=== PATIENT | male | born 1995 | race Caucasian/White ===

== ENCOUNTER → 2017-02-25 | Outpatient (CLI) | payer OTHER ==
[~2017-02-25] MED LIST: RISP1TAB68 PO
[2017-02-25 13:11] LABS: BASO % 0.6 %; BASO ABS # 0.04 K/uL (0-0.2); COMPLETE YES; EOS % 3.7 %; HEMATOCRIT 47.1 % (42-52); IG% 0.1 %; LYMPH % 40.7 %; MEAN CELL VOLUME 89.2 fL (80-100); MEAN CORPUSCULAR HEMOGLOBIN 31.4 pg (25-34); MEAN CORPUSCULAR HGB CONC 35.2 g/dl (32-36); MONO % 7.6 %; NEUT % 47.3 %; PLATELET COUNT 212 K/uL (130-400); RED BLOOD COUNT 5.28 M/uL (4.7-6.1); WHITE BLOOD COUNT 7.12 K/uL (4.8-10.8)
[2017-02-25 13:44] LABS: ALT/SGPT 98 U/L (12-78); BLOOD UREA NITROGEN 15 mg/dl (7-18); BUN/CREATININE RATIO 15.1 (10-20); CALCIUM 9.3 mg/dl (8.5-10.1); CARBON DIOXIDE 27 mmol/L (21-32); CHLORIDE 108 mmol/L (98-107); CHOLESTEROL 199 mg/dl (0-200); GLUCOSE 77 mg/dl (70-99); POTASSIUM 3.9 mmol/L (3.5-5.1); SODIUM 142 mmol/L (136-145); TRIGLYCERIDES 91 mg/dl (0-150); VERY LOW DENSITY LIPOPROT CALC 18 mg/dl
[2017-02-25 13:54] LABS: ALB/GLOB RATIO 1.3 (0.9-2); ALKALINE PHOSPHATASE 37 U/L (45-117); AST/SGOT 48 U/L (15-37); CHOLESTEROL/HDL RATIO 3.3; HDL CHOLESTEROL 60 mg/dl; LDL CHOLESTEROL CALCULATED 121 mg/dl
== END | disposition home or self-care (01) ==
LOC: C.LAB1850 11:52
PROVIDERS: ATTEND Psychiatry & Neurology Geriatric Psychiatry
DX: Z79.899 Other long term (current) drug therapy (principal)

== ENCOUNTER 2017-09-11 10:22 | Inpatient (IN) | payer OTHER ==
[~2017-09-11] VITALS: Ht 172.7 cm; Wt 84.5 kg
[2017-09-11] MEDS ORDERED: FLUV100T12 PO (10:39)
[2017-09-11] MEDS ORDERED: MULT-506 PO (10:39)
[2017-09-11] MEDS ORDERED: OMEG10007 PO (10:39)
[2017-09-11] MEDS ORDERED: CHOL1000 PO (10:39)
[2017-09-11] MEDS ORDERED: ARIP1INJ INJ (10:39)
[2017-09-11] MEDS ORDERED: MISCCAP80 PO (10:39)
[2017-09-11 11:36] LABS: URINE APPEARANCE CLEAR (CLEAR); URINE BILIRUBIN NEG (NEG); URINE COLOR DK YELLOW; URINE NITRITE NEG (NEG); URINE PH 6.5 (4.5-7.5); URINE SPECIFIC GRAVITY 1.028 (1.000-1.030); UROBILINOGEN NEG (NEG); ZZUR CULT IF INDIC CLEAN CATCH NO
[2017-09-11 11:38] LABS: MANUAL MICROSCOPIC REQUIRED? NO; REVIEW REQ? NO
[2017-09-11 11:55] LABS: BENZODIAZEPINE, URINE NEG (NEG); COCAINE,URINE NEG (NEG); PHENCYCLIDINE, URINE NEG (NEG)
[2017-09-11 12:27] LABS: BASO % 0.6 %; BASO ABS # 0.04 K/uL (0-0.2); COMPLETE YES; EOS % 1.8 %; HEMATOCRIT 45.2 % (42-52); IG% 0.1 %; LYMPH % 28.6 %; LYMPH ABS # 1.91 K/uL (1.2-3.4); MEAN CELL VOLUME 88.5 fL (80-100); MEAN CORPUSCULAR HEMOGLOBIN 33.1 pg (25-34); MEAN CORPUSCULAR HGB CONC 37.4 g/dl (32-36); MONO % 7.5 %; NEUT % 61.4 %; PLATELET COUNT 220 K/uL (130-400); RED BLOOD COUNT 5.11 M/uL (4.7-6.1); WHITE BLOOD COUNT 6.68 K/uL (4.8-10.8)
[2017-09-11 12:44] LABS: BUN/CREATININE RATIO 11.7 (10-20); CALCIUM 9.2 mg/dl (8.5-10.1); CREATININE 1.03 mg/dl (0.60-1.40); POTASSIUM 3.8 mmol/L (3.5-5.1)
[2017-09-11 12:55] LABS: ALB/GLOB RATIO 1.5 (0.9-2); THYROID STIMULATING HORMONE 1.68 uIu/ml (0.300-4.500)
[2017-09-11 12:58] LABS: ACETAMINOPHEN < 2 ug/ml (10-30)
[2017-09-11] MEDS ORDERED: MAGNESIUM HYDROXIDE SUSP 30 ML UDC PO PRN (15:15)
[2017-09-11] MEDS ORDERED: SODIUM CHLORIDE 0.65% NA SOLN 45 ML (OCEAN) PRN (15:15)
[2017-09-11] MEDS ORDERED: NURSING VERBAL MED ORDER ONE ×2 (15:15→17:45)
[2017-09-11] MEDS ORDERED: ALUMINUM/MAGNESIUM SUSP 30 ML UDC PO PRN (15:15)
[2017-09-11] MEDS ORDERED: ACETAMINOPHEN 325 MG TAB PO PRN (15:15)
[2017-09-11] MEDS ORDERED: BISMUTH SUBSALICYLATE PER ML OMNICELL CHARGE PO PRN (15:15)
[2017-09-11] MEDS ORDERED: hydrOXYzine HCL 25 MG TAB PO PRN (15:15)
[2017-09-11] MEDS ORDERED: HALOPERIDOL 1 MG TAB PO STA (15:17)
[2017-09-11 15:31] VITALS: O2SAT 98
--- NOTE | 2017-09-11 17:01 | EMERGENCY ROOM VISIT NOTE ---
History Report prepared by Selwyn: Cynthia Camejo Under the Supervision of: Dr. Blake Oconnor M.D. First contact with patient: 11:28 Chief Complaint: ANXIETY Stated Complaint: UPSET/WORRIED History of Present Illness The patient is a 21 year old male who presents to the Emergency Room with complaints of worsening anxiety that began on one week ago. The patient was diagnosed with having a mood disorder in 2013 and has had ADHD since 3rd grade. The patient's mother states that while the patient was at school, his friends became worried about the patient's anxiety level. They took him to the hospital and he was admitted for 3 days. The patient states that today he went to see his psychiatrist for a check up, noting he was emotional and not thinking clearly. The patient denies having a headache or fever. He notes some sleep apnea, secondary to his deviated septum. The psychiatrist suggested the patient come to Emergency Department for further evaluation and hospitalization. The patient states that he has not been sleeping lately and He notes that he is going to [place] with his family on , noting his psychiatrists suggests he should be more emotional stable if he plans on going. He states that "I worry too much about the people I care about". The patient has been taking Luvox to treat his OCD since 11th grade. 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 He is currently on Bactrim as well as an antifungal cream for a small skin lesion on his right arm. Source of History: patient Onset: one week Position: other (global) Quality: other (mood disorder) Timing: worsening Modifying Factors (Relieving): other (none) Associated Symptoms: No fevers, No headache Review of Systems See HPI for pertinent positives & negatives. A total of 10 systems reviewed and were otherwise negative. Past Medical & Surgical Medical Problems: (1) Anxiety Family History No pertinent family history. Social History Smoking Status: Former Smoker Alcohol Use: none Drug Use: none Marital Status: single Housing Status: lives with family Occupation Status: student Current/Historical Medications Scheduled Aripiprazole (Abilify Maintena), 400 MG INJ MONTHLY Cholecalciferol (Vitamin D3), 1,000 INTER.UNIT PO DAILY Fish Oil (Dixon-3), 1 CAP PO DAILY Fluvoxamine Maleate (Luvox), 200 MG PO HS Multivitamin (Multivitamin), 1 TAB PO DAILY Probiotic Product (Probiotic), 1 CAP PO DAILY Allergies Coded Allergies: Gluten (Unverified Allergy, Unknown, GI UPSET, 09/11/17) Physical Exam Vital Signs Date Time Temp Pulse Resp B/P (MAP) Pulse Ox O2 Delivery O2 Flow Rate FiO2 09/11/17 15:31 75 18 152/86 98 Room Air 09/11/17 12:55 70 133/73 96 Room Air 09/11/17 10:25 36.8 87 20 164/89 99 Room Air Physical Exam Constitutional: Vital signs reviewed. Eyes: Pupils are equal round reactive to light. Conjunctiva are noninjected. ENT: Pharynx is clear without erythema or exudate. Mucous membranes are moist. Neck supple without meningeal signs. Respiratory: Clear to auscultation bilaterally. Breath sounds are equal bilaterally. Cardiovascular: Regular rate and rhythm. No rubs or gallops. GI: Soft, nondistended and nontender. Bowel sounds are present. Musculoskeletal: No peripheral edema. No lower extremity tenderness. Integumentary: Subcentimeter lesions to right forearm eschar. Neurological: The patient is awake and alert. No focal deficits. Psychiatric: Very anxious, tearful at times, scattered thoughts. Medical Decision & Procedures Laboratory Results 09/11/17 12:12 Red Blood Count 5.11, Mean Corpuscular Volume 88.5, Mean Corpuscular Hemoglobin 33.1, Mean Corpuscular Hemoglobin Concent 37.4, Mean Platelet Volume 11.0, Neutrophils (%) (Auto) 61.4, Lymphocytes (%) (Auto) 28.6, Monocytes (%) (Auto) 7.5, Eosinophils (%) (Auto) 1.8, Basophils (%) (Auto) 0.6, Neutrophils # (Auto) 4.10, Lymphocytes # (Auto) 1.91, Monocytes # (Auto) 0.50, Eosinophils # (Auto) 0.12, Basophils # (Auto) 0.04 09/11/17 12:12 Test 09/11/17 11:15 09/11/17 12:12 Urine Color DK YELLOW Urine Appearance CLEAR (CLEAR) Urine pH 6.5 (4.5-7.5) Urine Specific [place] 1.028 (1.000-1.030) Urine Protein NEG (NEG) Urine Glucose (UA) NEG (NEG) Urine Ketones TRACE (NEG) Urine Occult Blood NEG (NEG) Urine Nitrite NEG (NEG) Urine Bilirubin NEG (NEG) Urine Urobilinogen NEG (NEG) Urine Leukocyte Esterase NEG (NEG) Urine Opiates Screen NEG (NEG) Urine Methadone, Qualitative NEG (NEG) Urine Barbiturates NEG (NEG) Urine Phencyclidine (PCP) Level NEG (NEG) Ur Amphetamine/Methamphetamine NEG (NEG) MDMA (Ecstasy) Screen NEG (NEG) Urine Benzodiazepines Screen NEG (NEG) Urine Cocaine Metabolite NEG (NEG) Urine Marijuana (THC) NEG (NEG) White Blood Count 6.68 K/uL (4.8-10.8) Red Blood Count 5.11 M/uL (4.7-6.1) Hemoglobin 16.9 g/dL (14.0-18.0) Hematocrit 45.2 % (42-52) Mean Corpuscular Volume 88.5 fL (80-100) Mean Corpuscular Hemoglobin 33.1 pg (25-34) Mean Corpuscular Hemoglobin Concent 37.4 g/dl (32-36) Platelet Count 220 K/uL (130-400) Mean Platelet Volume 11.0 fL (7.4-10.4) Neutrophils (%) (Auto) 61.4 % Lymphocytes (%) (Auto) 28.6 % Monocytes (%) (Auto) 7.5 % Eosinophils (%) (Auto) 1.8 % Basophils (%) (Auto) 0.6 % Neutrophils # (Auto) 4.10 K/uL (1.4-6.5) Lymphocytes # (Auto) 1.91 K/uL (1.2-3.4) Monocytes # (Auto) 0.50 K/uL (0.11-0.59) Eosinophils # (Auto) 0.12 K/uL (0-0.5) Basophils # (Auto) 0.04 K/uL (0-0.2) RDW Standard Deviation 38.7 fL (36.4-46.3) RDW Coefficient of Variation 12.1 % (11.5-14.5) Immature Granulocyte % (Auto) 0.1 % Immature Granulocyte # (Auto) 0.01 K/uL (0.00-0.02) Anion Gap 7.0 mmol/L (3-11) Est Creatinine Clear Calc Drug Dose 122.1 ml/min Estimated GFR () 121.5 Estimated GFR (Non- 104.8 BUN/Creatinine Ratio 11.7 (10-20) Calcium Level 9.2 mg/dl (8.5-10.1) Total Bilirubin 0.6 mg/dl (0.2-1) Aspartate Amino Transf (AST/SGOT) 20 U/L (15-37) Alanine Aminotransferase (ALT/SGPT) 26 U/L (12-78) Alkaline Phosphatase 48 U/L (45-117) Total Protein 7.4 gm/dl (6.4-8.2) Albumin 4.4 gm/dl (3.4-5.0) Globulin 3.0 gm/dl (2.5-4.0) Albumin/Globulin Ratio 1.5 (0.9-2) Thyroid Stimulating Hormone (TSH) 1.680 uIu/ml (0.300-4.500) Salicylates Level < 1.7 mg/dl (2.8-20) Acetaminophen Level < 2 ug/ml (10-30) Ethyl Alcohol mg/dL < 3.0 mg/dl (0-3) Laboratory results as reviewed by me. Medications Administered Medications (Trade) Dose Ordered Sig/Alan Route Start Time Stop Time Status Last Admin Dose Admin Haloperidol (Haldol Tab) 2 mg NOW STAT PO 09/11/17 15:17 09/11/17 15:19 DC 09/11/17 15:29 2 MG ED Course 1130: The patient was evaluated in room A8. A complete history and physical exam was performed. 1220: I revaluated the patient, who was resting comfortably. He was feeling a little less anxious. 1517: I spoke with Dr. Bowling of [facility]. We discussed the patient and test results. The patient will be further evaluated by Dr. Bowling. He suggested I order Haloperidol for the patient. Ordered Haloperidol 2mg PO. Medical Decision This is a 21-year-old male who presents for mental health evaluation. I did perform a limited focused review of portions of the patient's old chart on the electronic medical record. The patient has had no recent pertinent visits to this hospital. I did evaluate the patient as noted above. I did obtain history from the patient as well as his mother. I did order and review the patient's blood work as noted in the electronic medical record. The patient was medically cleared. He was evaluated by the mental health geriatric case manager and 3 S. He was accepted for inpatient hospitalization to the behavioral unit. Dr. Bowling of psychiatry requested that I give him 2 mg of Haldol which I did. Medication Reconcilliation Current Medication List: was personally reviewed by me Blood Pressure Screening Patient's blood pressure: Elevated blood pressure Blood pressure disposition: Elevated BP felt to be situational Impression Primary Impression: Mood disorder Additional Impression: Anxiety Scribe Attestation The scribe's documentation has been prepared under my direct and personally reviewed by me in its entirety. I confirm that the note above accurately reflects all work, treatment, procedures, and medical decision making performed by me. Departure Information Dispostion Mental Health Acute Care Referrals Everardo Torres D.O. (PCP) Forms HOME CARE DOCUMENTATION FORM, IMPORTANT VISIT INFORMATION Patient Instructions My [facility] Problem Qualifiers
[2017-09-11 17:28] VITALS: BP 151/97; PULSE 73; TEMP 36.8; Ht 172.7 cm; Wt 84.5 kg
[2017-09-11] MEDS: HALOPERIDOL 5 MG TAB PO PRN (18:46)
[2017-09-11] MEDS: FLUVOXAMINE MALEATE 50 MG TAB PO SCH (22:00)
[2017-09-12] MEDS: HALOPERIDOL 5 MG TAB PO PRN ×3 (02:36→22:49)
[2017-09-12] MEDS: FLUVOXAMINE MALEATE 50 MG TAB PO SCH ×2 (02:37→21:38)
[2017-09-12] MEDS: hydrOXYzine HCL 25 MG TAB PO PRN (02:38)
[2017-09-12 12:06] VITALS: BP 136/89
--- NOTE | 2017-09-12 14:31 | Psychiatric History & Physical ---
History Date of Service Sep 12, 2017. Identifying Data Dustin Starks is a 21-year-old male admitted on Sep 11, 2017 at 17:04 who currently lives in [place] with his parents when not at college at [employer]. Dustin Starks was admitted on a 201 voluntary commitment. Patient is admitted from home. The patient was brought to the ED by his mother, Jenny. Information provided by the patient is considered to be reliable, but limited. Chief Complaint "I wasn't thinking clearly". History of Present Illness Dustin Starks is a 21-year-old male admitted to [address] [place] [address] after a brief hospitalization at [facility] in [place]. Pt was reportedly hospitalized for increased anxiety and mood instability. He reports poor compliance with psychiatric medications. Per mother's request, pt was taken from [facility] due to her feelings that care was inadequate. Due to ongoing anxiety and being unable to think clearly, pt was brought to the ED upon recommendation by Dr. Lovett. Pt was previously diagnosed with OCD, anxiety, and ADHD. Pt states the majority of his anxiety is from feeling a need to protect people. He feels as though "it is my job to save the world" and shared that last evening he came to the realization that "my job is to just focus on myself and school and wrestling". Pt states he cares deeply for his mother and "she tells me I'm special all the time and I want her to know how special she is". He becomes extremely tearful when expressing this. Pt is extreme labile and frequently alternates between energetic excitement and tears. Pt also reports his family has planned a trip to [place] over and he is worried that if he is not well, they will have to change their plans which makes him feel guilty. Pt seems to be preoccupied with the idea that he needs to protect people and that it is up to him to "save the world". He can quickly redirect himself and explains that he realizes it is not his job to do that. He states that he has been afraid to share certain thoughts and tells us that "one time I felt like I saved the world with Jeb Seals - in my mind". Due to tangential thought process we were unable to more deeply examine these thoughts. Pt seems to be more energetic and excited when talking about wrestling and seems very passionate about his teammates and the sport itself. He is interested in sharing stories and will frequently apologize if he feels like he has misspoken. Pt is currently on Abilify Maintena and has been on Luvox for several years. Although he has a diagnosis of ADHD, he has not taken medications in several years. Per nursing notes, he has tried Seroquel in the past which caused sedation. He had been involved with a partial program through [facility] for 3 months and they were noticing improvement, but the program lost funding. Pt was then attending [employer] in [place]. Per nursing notes, his mother has passed on that he has OCD and anxious traits that were a big concern in 11th grade as the patient was overly religiously obsessed. He had been taking things in the Bible literally which was affecting grades and behavior. Pt denies that this is a concern at this point in time, though collateral information suggests that he has been veering down this path again recently. Pt denies SI stating "that's so sad, I couldn't do that". He denies HI, A/V hallucinations, paranoia, eating disorder, and PTSD. Will likely require collateral information from family and outpatient providers to fill in remainder of psychiatric history. Past Psychiatric History Current OP Treatment: psychiatrist (Dr. Spaulding - [facility]), therapist (Dr. Lamar ) Prior Psych Hospitalizations: other ([facility]) Access to a Gun: No Suicide Attempts: No Past Medication Trials Per nursing notes: Seroquel - sedation Allergies Allergies: Coded Allergies: Cat Dander (Unverified Allergy, Unknown, respiratory s/s, 09/12/17) Gluten (Unverified Allergy, Unknown, his throat cloggs up some, 09/12/17) Home Medications Scheduled Aripiprazole (Abilify Maintena), 400 MG INJ MONTHLY Cholecalciferol (Vitamin D3), 1,000 INTER.UNIT PO DAILY Fish Oil ([place]-3), 1 CAP PO DAILY Fluvoxamine Maleate (Luvox), 200 MG PO HS Multivitamin (Multivitamin), 1 TAB PO DAILY Probiotic Product (Probiotic), 1 CAP PO DAILY Family History unable to obtain family history at time of admission. Reported family history of anxiety per ED CM mental health evaluation. Alcohol Use Alcohol Use In Past 12 Months: Yes (Occasional) AUDIT Total Score: 1 Smoking Use Smoking Status: Former Smoker Personal History Education: started college (1st semester at [employer]) Relationship History: never Psychological Trauma History: Denies Hx Traumatic Event Additional Comments: Collateral information provided by mother: attempted to speak with mother over the phone to obtain additional information, but did not receive an answer. Review of Systems Constitutional: denies Cardiovascular: denies Respiratory: denies Gastrointestinal: denies Musculoskeletal: denies Neurologic: denies Psychiatric: denies other than stated above The remainder of a 10-point review of systems was reported negative. Examination Physical Examination A physical exam was performed in the ER prior to admission to the unit by Dr. Blake Oconnor M.D. I accept that physical as correct/medical clearance for the inpatient physical exam. Vital Signs Vital Signs Past 12 Hours Date Time Temp Pulse Resp B/P (MAP) Pulse Ox O2 Delivery O2 Flow Rate FiO2 09/12/17 12:06 136/89 09/12/17 07:07 Mental Examination During interview pt is: alert and oriented, cooperative Appearance: appropriately dressed (wearing pj pants and t-shirt), appropriately groomed Eye contact is: good Motor behavior is: no abnormal motor movements Speech: normal in rate, rhythm & volume Affect: labile (periods of excitement to extremely tearful), anxious Mood is: anxious Thought process: tangential, flight of ideas (frequently changing subjects and offering stories), concrete Thought content: preoccupation (wrestling and mother) Suicidal thought are: denied Homicidal thoughts are: denied Hallucinations: denies auditory, denies visual Cognition: memory grossly intact, attention grossly intact, language grossly intact Intelligence estimated to be: average Insight: impaired Judgement: impaired Impression / Recommendations Impression Difficult at this time to assess etiology and severity of symptoms. Stories patient reports seem minimized compared to reports prior to admission at [facility]. Possible bipolar disorder with mixed adelfo vs. schizoaffective disorder. Pt's mother was called, but no answer received. Will likely need collateral information to determine appropriate diagnosis. May consider [place] for mood stabilization as patient presents extremely labile. Continues to received Haldol PRN for anxiety. Inventory Assets Strengths: supportive mother, willingness for treatment, christianity affiliation Needs: engage in effective treatment, manage school stressors, increase medication compliance Risk Factors Assessment Male: Yes : Yes /single/: Yes Mental Health Diagnoses: Yes Substance use disorders: No Previous attempt: No Previous psychiatric stay: Yes Protective Factors Assessment Druze beliefs: Yes : No Responsible for young children: No Employed: No Supportive family: Yes Recommendations (1) Mood disorder 09/12 - unclear etiology of symptoms at this point. questioning bipolar disorder with mixed features vs. schizoaffective disorder. will require collateral information and additional communication with patient to assess recent events more fully. - Will continue with Haldol PRN and discuss potential use of mood stabilizers as opposed to the high doses of Luvox he had been non-compliant with prior to admission. May consider [place] due to extreme fluctuation in mood. - Pt denies SI at this time, but extremely mood labile - Every 15 minute checks for safety - Encourage engagement in group therapy and activities while on the unit. - Suggest family meeting if appropriate - Coordination of care with current outpatient providers - Communication with [facility] if necessary regarding completion of the semester (2) Acute anxiety 09/12 - PRN Haldol and Vistaril given for anxiety and agitation (3) OCD (obsessive compulsive disorder) 09/12 - Plan to taper Luvox as patient was non-compliant with medications since . Current dosing written for 50mg qHS, will determine changes as further history can be obtained and progress can be assessed. CPT Code Initial Hospital Care: [id number]
[2017-09-12] MEDS ORDERED: BENZTROPINE MESYLATE 1 MG TAB PO PRN ×2 (15:30→16:00)
[2017-09-13 07:00] VITALS: BP_SYST 111; BP_SYST 139; BP_DIAS 63; BP_DIAS 73; PULSE 103; PULSE 53; TEMP 36.5
[2017-09-13] MEDS: HALOPERIDOL 5 MG TAB PO PRN (09:20)
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
[2017-09-13] MEDS: LITHIUM CARBONATE SR 300 MG TAB (LITHOBID) PO SCH ×2 (12:43→21:31)
[2017-09-13] MEDS: hydrOXYzine HCL 25 MG TAB PO PRN (21:32)
[2017-09-14] MEDS: hydrOXYzine HCL 25 MG TAB PO PRN (00:31)
[2017-09-14 06:53] VITALS: BP_SYST 114; BP_SYST 124; BP_DIAS 72; BP_DIAS 76; PULSE 55; PULSE 94; TEMP 36.5
[2017-09-14] MEDS: LITHIUM CARBONATE SR 300 MG TAB (LITHOBID) PO SCH ×2 (08:26→21:50)
--- NOTE | 2017-09-14 12:36 | Psychiatric Progress Notes ---
Progress Note Date of Service Sep 14, 2017. Interval History Dustin Starks is a 21-year-old male admitted on Sep 11, 2017 at 17:04 who currently lives in [place] with his parents when not at college at [employer]. Dustin Starks was admitted on a 201 voluntary commitment for magical thinking/delusions and restlessness. Chief Complaint "I'm good, really good.". Subjective Patient was seen & assessed interval progress reviewed with Treatment Team. The patient was isolating in his room at the time of the interview. He says that he is doing well and thinks that the meds are helping. He is very tangential, frequently stopping to conversation to tell me another great idea he is having about wrestling, wrestling camps, paying for [employer] bills, [place]. He admits that his thoughts are moving fast. His mood is good and he is elated about his wrestling ideas. He describes his mood as "really happy". he denies having any fearful thoughts, and says that he feels safe here, "I can tell you are all very good people.". he denies SI/HI. Nursing reports that he had 1 prn of haldol yesterday and at times was tearful. He also expressed stress with his father, feeling a lot of pressure and negativity. Review of Systems Constitutional: No fever, No chills, No sweats, No weight loss, No weakness, No fatigue, No problem reported ENT: No hearing loss, No unusual epistaxis, No nasal symptoms, No sore throat, No tinnitus, No dental problems, No trouble swallowing, No problem reported Respiratory: No cough, No sputum, No wheezing, No shortness of breath, No dyspnea on exertion, No dyspnea at rest, No hemoptysis, No problem reported Cardiovascular: No chest pain, No orthopnea, No PND, No edema, No claudication , No palpitations, No problem reported Abdomen: No pain, No nausea, No vomiting, No diarrhea, No constipation, No GI bleeding, No problem reported Musculoskeletal: No joint pain, No muscle pain, No swelling, No calf pain, No problem reported Neurologic: No memory loss, No paralysis, No weakness, No numbness/tingling, No vertigo, No balance problems, No problem reported Psychiatric: + problem reported (racing thoughts) Integumentary: No rash, No itch, No new/changing skin lesions, No color change , No bleeding, No problem reported Sleep Information Total Hours of Sleep: 6.00 Meal Information Percent of Breakfast Consumed: 100 Percent of Lunch Consumed: 0 Percent of Dinner Consumed: 100 Mental Status Exam During interview pt is: alert and oriented, cooperative Appearance: appropriately dressed, appropriately groomed Eye contact is: good Motor behavior is: no abnormal motor movements Speech: other (verbally intrusive) Affect: labile (periods of excitement to extremely tearful) Mood is: other ("Really happy") Thought process: tangential, flight of ideas (frequently changing subjects and offering stories), concrete Thought content: preoccupation (nondenominational) Suicidal thought are: denied Homicidal thoughts are: denied Hallucinations: denies auditory, denies visual Cognition: memory grossly intact, attention grossly intact, language grossly intact Intelligence estimated to be: average Insight: impaired Judgement: impaired Summary of Past History 09/13--phone session with family (mom cell [phone]) and therapist Jojo (cell [phone]). 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 Developmental disabilities are denied. Patient developed intrussive nondenominational preoccupations in 11th grade of severity that he attended [facility] partial program with Dr. Teran. Outpatient therapy at that time was reportedly for OCD but upon talking with therapist, dx was more conceptual to help him deal with his magical thinking that were transient, often grandiose delusions without lopes or other evidence of psychosis though family did note some social withdrawal at onset of symptoms. At onset of symptoms he worried excessively about people getting hurt--for example thought of throwing himself into a [employer] while running so that no one else would get hurt or sit by the window to block a stray bullet. 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 Therapist Jojo saw the patient for 1 session day prior to admission after not having seen him for 2 years as a courtesy to the family. His presentation at that session was expansive mood, lots of talk about Eulogio Givens and whether or not cartoons were real. Family was able to add past trials of Prozac, Risperdal, and Seroquel and also described past brief treatment with a [facility] provider. Confirmed that patient did see Dr. Chu in 2013 for a total of 4 sessions. He was initially diagnosed with OCD and H&P seems to describe increase in goal directed activity with exercise at night with hyperfocus on wrestling. He was started on Prozac and became increasingly rigid, compulsive, odd, argumentative with family in the weeks that he was on it. Impression Remains tangential with flight of ideas. Tolerating initiation of lithium without side effects. He may benefit from a scheduled antipsychoticl to help slow thoughts until lithium therapeutic. Will add haldol 5 mg. BID for now. Is on Abilify Maintenna and documentation is conflictual about dose and timing with the [facility]'s notes indicating a 200 mg. dose due 09/15, and [facility] notes indicating 400 mg. dose due 09/11. Other documentation indicates that he gets the injection at school at [facility]. Will need clarification from mother who will be visiting today. Plan (1) Psychotic disorder 09/13--reviewed with family and patient impression of currently a mixed manic episode and rationale for tapering/holding Luvox at this time. He is already showing some improvement in grandiosity, less hyperreligious, less hypersexual and thoughts are more organized though still tangential in conversation. Risks/ benefits/alternatives reviewed lithium for mood stabilization and presumed bipolar I disorder. Discussion included but was not limited to risks of toxicity in overdose and need for ongoing blood monitoring (levels, kidney function, and thyroid). The patient was made aware to avoid regular use of NSAIDs as can increase levels and that lithium may need to be held during GI or other illnesses that result in dehyrdation. Reviewed that this would be an adjunct to his Abilify Maintenna injection. Will order Lithobid 300 mg am and 600 mg hs with lithium level on day 5. Screening EKG as baseline. 09/14 - Decidedly manic today. Will add haldol 5 mg. BID - [place] level on 09/17 - Clarify with mother who gives the maintenna, when last short and dosage Discharge / Aftercare Planning Primary Care Physician: Name: Dr. Torres Psychiatrist: Name: Dr. Spaulding - [facility] Date of Appointment: Oct 05, 2017 Therapist: Name: Dr. Abel Uribe Date of Appointment: Sep 16, 2017 Visit Code E&M Code: 98386 Inventory Assets Strengths: supportive mother, willingness for treatment, nondenominational affiliation Needs: engage in effective treatment, manage school stressors, increase medication compliance Risk Factors Assessment Male: Yes : Yes /single/: Yes Mental Health Diagnoses: Yes Substance use disorders: No Previous attempt: No Previous psychiatric stay: Yes Protective Factors Assessment Evangelical beliefs: Yes : No Responsible for young children: No Employed: No Supportive family: Yes Data Vital Signs Last 24 Hrs: Date Time Temp Pulse Resp B/P (MAP) Pulse Ox O2 Delivery O2 Flow Rate FiO2 09/14/17 06:53 36.5 55 16 124/72 94 114/76 Meds Administered Last 24 Hrs: Meds Administered (Past 24Hrs) Medications (Trade) Dose Ordered Sig/Alan Route Start Time Stop Time Status Last Admin Dose Admin Benztropine Mesylate (Cogentin Tab) 1 mg BID PRN PO 09/12/17 16:00 10/12/17 15:29 09/12/17 22:51 1 MG [place] Carbonate (Lithobid Tab) 300 mg QAM PO 09/13/17 11:00 10/13/17 10:59 09/14/17 08:26 300 MG [place] Carbonate (Lithobid Tab) 600 mg HS PO 09/13/17 22:00 10/13/17 21:59 09/13/17 21:31 600 MG Lab Results Last 24 Hrs: 09/11/17 12:12 Red Blood Count 5.11, Mean Corpuscular Volume 88.5, Mean Corpuscular Hemoglobin 33.1, Mean Corpuscular Hemoglobin Concent 37.4, Mean Platelet Volume 11.0, Neutrophils (%) (Auto) 61.4, Lymphocytes (%) (Auto) 28.6, Monocytes (%) (Auto) 7.5, Eosinophils (%) (Auto) 1.8, Basophils (%) (Auto) 0.6, Neutrophils # (Auto) 4.10, Lymphocytes # (Auto) 1.91, Monocytes # (Auto) 0.50, Eosinophils # (Auto) 0.12, Basophils # (Auto) 0.04 09/11/17 12:12 Test 09/11/17 11:15 09/11/17 12:12 Urine Color DK YELLOW Urine Appearance CLEAR (CLEAR) Urine pH 6.5 (4.5-7.5) Urine Specific [place] 1.028 (1.000-1.030) Urine Protein NEG (NEG) Urine Glucose (UA) NEG (NEG) Urine Ketones TRACE (NEG) Urine Occult Blood NEG (NEG) Urine Nitrite NEG (NEG) Urine Bilirubin NEG (NEG) Urine Urobilinogen NEG (NEG) Urine Leukocyte Esterase NEG (NEG) Urine Opiates Screen NEG (NEG) Urine Methadone, Qualitative NEG (NEG) Urine Barbiturates NEG (NEG) Urine Phencyclidine (PCP) Level NEG (NEG) Ur Amphetamine/Methamphetamine NEG (NEG) MDMA (Ecstasy) Screen NEG (NEG) Urine Benzodiazepines Screen NEG (NEG) Urine Cocaine Metabolite NEG (NEG) Urine Marijuana (THC) NEG (NEG) White Blood Count 6.68 K/uL (4.8-10.8) Red Blood Count 5.11 M/uL (4.7-6.1) Hemoglobin 16.9 g/dL (14.0-18.0) Hematocrit 45.2 % (42-52) Mean Corpuscular Volume 88.5 fL (80-100) Mean Corpuscular Hemoglobin 33.1 pg (25-34) Mean Corpuscular Hemoglobin Concent 37.4 g/dl (32-36) Platelet Count 220 K/uL (130-400) Mean Platelet Volume 11.0 fL (7.4-10.4) Neutrophils (%) (Auto) 61.4 % Lymphocytes (%) (Auto) 28.6 % Monocytes (%) (Auto) 7.5 % Eosinophils (%) (Auto) 1.8 % Basophils (%) (Auto) 0.6 % Neutrophils # (Auto) 4.10 K/uL (1.4-6.5) Lymphocytes # (Auto) 1.91 K/uL (1.2-3.4) Monocytes # (Auto) 0.50 K/uL (0.11-0.59) Eosinophils # (Auto) 0.12 K/uL (0-0.5) Basophils # (Auto) 0.04 K/uL (0-0.2) RDW Standard Deviation 38.7 fL (36.4-46.3) RDW Coefficient of Variation 12.1 % (11.5-14.5) Immature Granulocyte % (Auto) 0.1 % Immature Granulocyte # (Auto) 0.01 K/uL (0.00-0.02) Anion Gap 7.0 mmol/L (3-11) Est Creatinine Clear Calc Drug Dose 122.1 ml/min Estimated GFR () 121.5 Estimated GFR (Non- 104.8 BUN/Creatinine Ratio 11.7 (10-20) Calcium Level 9.2 mg/dl (8.5-10.1) Total Bilirubin 0.6 mg/dl (0.2-1) Aspartate Amino Transf (AST/SGOT) 20 U/L (15-37) Alanine Aminotransferase (ALT/SGPT) 26 U/L (12-78) Alkaline Phosphatase 48 U/L (45-117) Total Protein 7.4 gm/dl (6.4-8.2) Albumin 4.4 gm/dl (3.4-5.0) Globulin 3.0 gm/dl (2.5-4.0) Albumin/Globulin Ratio 1.5 (0.9-2) Thyroid Stimulating Hormone (TSH) 1.680 uIu/ml (0.300-4.500) Salicylates Level < 1.7 mg/dl (2.8-20) Acetaminophen Level < 2 ug/ml (10-30) Ethyl Alcohol mg/dL < 3.0 mg/dl (0-3)
[2017-09-14] MEDS: HALOPERIDOL 5 MG TAB PO SCH (21:50)
[2017-09-15 07:05] VITALS: BP_SYST 111; BP_SYST 112; BP_DIAS 67; PULSE 54; PULSE 98; TEMP 36.6
[2017-09-15] MEDS: LITHIUM CARBONATE SR 300 MG TAB (LITHOBID) PO SCH ×2 (07:36→21:21)
[2017-09-15] MEDS: HALOPERIDOL 5 MG TAB PO SCH ×2 (07:36→21:21)
--- NOTE | 2017-09-15 10:29 | Psychiatric Progress Notes ---
Progress Note Date of Service Sep 15, 2017. Interval History Dustin Starks is a 21-year-old male admitted on Sep 11, 2017 at 17:04 who currently lives in [place] with his parents when not at college at [employer]. Dustin Starks was admitted on a 201 voluntary commitment for magical thinking/delusions and restlessness. Chief Complaint "I'm thinking of my favorite teacher.". Subjective Patient was seen & assessed interval progress reviewed with Treatment Team. The patient says that his mood is "good" and wants to talk about his favorite teacher from high school. He describes the teacher, mimics his speech patterns. 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 ". He is still excited about wrestling camps with ideas how to make them fun and exciting. We review some of his symptoms from the [employer] records which state that he thought he was supposed to be God. He believes that they made more of that than it was and says that he is not currently having any such thoughts, and denies feeling that he has special mcleod or gifts. His mood remains elevated, finding amena and happiness in everything. His energy is "medium" and reports that his thoughts are slower than yesterday since the addition of haldol. A meeting is scheduled with his parents tomorrow which he says "will be great". We talk about his therapist, Dr. Uribe, who he describes as "one of my best friends". Nursing reports that yesterday he described "having a tornado in my brain" and was observed to have some mild paranoia at the end of the day yesterday. He denies aud/vis hallucinations, denies SI/HI Review of Systems Constitutional: + problem reported (energy "medium") ENT: No hearing loss, No unusual epistaxis, No nasal symptoms, No sore throat, No tinnitus, No dental problems, No trouble swallowing, No problem reported Respiratory: No cough, No sputum, No wheezing, No shortness of breath, No dyspnea on exertion, No dyspnea at rest, No hemoptysis, No problem reported Cardiovascular: No chest pain, No orthopnea, No PND, No edema, No claudication , No palpitations, No problem reported Abdomen: No pain, No nausea, No vomiting, No diarrhea, No constipation, No GI bleeding, No problem reported Musculoskeletal: No joint pain, No muscle pain, No swelling, No calf pain, No problem reported Neurologic: No memory loss, No paralysis, No weakness, No numbness/tingling, No vertigo, No balance problems, No problem reported Psychiatric: No depression symptoms, No anhedonism, No anxiety, No insomnia, No substance abuse, No problem reported Integumentary: No rash, No itch, No new/changing skin lesions, No color change , No bleeding, No problem reported Sleep Information Total Hours of Sleep: 7.00 Meal Information Percent of Breakfast Consumed: 100 Percent of Lunch Consumed: 70 Percent of Dinner Consumed: 100 Mental Status Exam During interview pt is: alert and oriented, cooperative Appearance: appropriately dressed, appropriately groomed Eye contact is: good Motor behavior is: no abnormal motor movements Speech: other Affect: elated Mood is: other Thought process: tangential, flight of ideas, concrete Thought content: preoccupation Suicidal thought are: denied Homicidal thoughts are: denied Hallucinations: denies auditory, denies visual Cognition: memory grossly intact, attention grossly intact, language grossly intact Intelligence estimated to be: average Insight: impaired Judgement: impaired Summary of Past History 09/13--phone session with family (mom cell [phone]) and therapist Jojo (cell [phone]). 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 Developmental disabilities are denied. Patient developed intrussive tenriism preoccupations in 11th grade of severity that he attended [facility] partial program with Dr. Teran. Outpatient therapy at that time was reportedly for OCD but upon talking with therapist, dx was more conceptual to help him deal with his magical thinking that were transient, often grandiose delusions without lopes or other evidence of psychosis though family did note some social withdrawal at onset of symptoms. At onset of symptoms he worried excessively about people getting hurt--for example thought of throwing himself into a iv[employer] while running so that no one else would get hurt or sit by the window to block a stray bullet. 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 Therapist Jojo saw the patient for 1 session day prior to admission after not having seen him for 2 years as a courtesy to the family. His presentation at that session was expansive mood, lots of talk about Eulogio Givens and whether or not cartoons were real. Family was able to add past trials of Prozac, Risperdal, and Seroquel and also described past brief treatment with a [facility] provider. Confirmed that patient did see Dr. Chu in 2013 for a total of 4 sessions. He was initially diagnosed with OCD and H&P seems to describe increase in goal directed activity with exercise at night with hyperfocus on wrestling. He was started on Prozac and became increasingly rigid, compulsive, odd, argumentative with family in the weeks that he was on it. Impression Some slowing to thoughts today, less tangential. Have confirmed with mother than Sustenna injections were as follows: 1. 400 mg. 08/18/17 2. 200 mg. 09/09/17 at [facility] 3. Scheduled for 400 mg. 09/18 at [facility] Have spoken with mother at her request and informed that we recommend holding next injection in view of having gotten 600 mg. over 3 weeks and is on Luvox which can further elevate Abilify levels. Also reviewed current meds and condition. Will continue with current meds and plan, coordinate with OP providers. Parents have rescheduled their trip to [place] for as in order to remain here with son. Meeting scheduled for tomorrow. Plan (1) Psychotic disorder 09/13--reviewed with family and patient impression of currently a mixed manic episode and rationale for tapering/holding Luvox at this time. He is already showing some improvement in grandiosity, less hyperreligious, less hypersexual and thoughts are more organized though still tangential in conversation. Risks/ benefits/alternatives reviewed lithium for mood stabilization and presumed bipolar I disorder. Discussion included but was not limited to risks of toxicity in overdose and need for ongoing blood monitoring (levels, kidney function, and thyroid). The patient was made aware to avoid regular use of NSAIDs as can increase levels and that lithium may need to be held during GI or other illnesses that result in dehyrdation. Reviewed that this would be an adjunct to his Abilify Maintenna injection. Will order Lithobid 300 mg am and 600 mg hs with lithium level on day 5. Screening EKG as baseline. 09/14 - Decidedly manic today. Will add haldol 5 mg. BID - [place] level on 09/17 - Clarify with mother who gives the maintenna, when last short and dosage 09/15 - Phone conversation with mother to keep her informed of treatment plan and condition - Continue current meds - Will push next Abilify injection back to at least 09/30/16 which would be 3 weeks from last injection, but am not sure that we are seeing good stabilization with this, and may consider another agent? Discharge / Aftercare Planning Primary Care Physician: Name: Dr. Torres Psychiatrist: Name: Dr. Jasson Law [facility] Date of Appointment: Oct 05, 2017 Time of Appointment: 8:30 am Therapist: Name: Dr. Abel Uribe Date of Appointment: Sep 19, 2017 Time of Appointment: 12:00 Appointment Notes: Dr. Uribe's cell phone - [phone] Visit Code E&M Code: 37094 Inventory Assets Strengths: supportive mother, willingness for treatment, tenriism affiliation Needs: engage in effective treatment, manage school stressors, increase medication compliance Risk Factors Assessment Male: Yes : Yes /single/: Yes Mental Health Diagnoses: Yes Substance use disorders: No Previous attempt: No Previous psychiatric stay: Yes Protective Factors Assessment Gnosticism beliefs: Yes : No Responsible for young children: No Employed: No Supportive family: Yes Data Vital Signs Last 24 Hrs: Date Time Temp Pulse Resp B/P (MAP) Pulse Ox O2 Delivery O2 Flow Rate FiO2 09/15/17 07:05 36.6 54 16 112/67 98 111/67 Meds Administered Last 24 Hrs: Meds Administered (Past 24Hrs) Medications (Trade) Dose Ordered Sig/Alan Route Start Time Stop Time Status Last Admin Dose Admin [place] Carbonate (Lithobid Tab) 300 mg QAM PO 09/13/17 11:00 10/13/17 10:59 09/15/17 07:36 300 MG [place] Carbonate (Lithobid Tab) 600 mg HS PO 09/13/17 22:00 10/13/17 21:59 09/14/17 21:50 600 MG Haloperidol (Haldol Tab) 5 mg BID PO 09/14/17 22:00 10/14/17 21:59 09/15/17 07:36 5 MG Lab Results Last 24 Hrs: 09/11/17 12:12 Red Blood Count 5.11, Mean Corpuscular Volume 88.5, Mean Corpuscular Hemoglobin 33.1, Mean Corpuscular Hemoglobin Concent 37.4, Mean Platelet Volume 11.0, Neutrophils (%) (Auto) 61.4, Lymphocytes (%) (Auto) 28.6, Monocytes (%) (Auto) 7.5, Eosinophils (%) (Auto) 1.8, Basophils (%) (Auto) 0.6, Neutrophils # (Auto) 4.10, Lymphocytes # (Auto) 1.91, Monocytes # (Auto) 0.50, Eosinophils # (Auto) 0.12, Basophils # (Auto) 0.04 09/11/17 12:12 Test 09/11/17 11:15 09/11/17 12:12 Urine Color DK YELLOW Urine Appearance CLEAR (CLEAR) Urine pH 6.5 (4.5-7.5) Urine Specific [place] 1.028 (1.000-1.030) Urine Protein NEG (NEG) Urine Glucose (UA) NEG (NEG) Urine Ketones TRACE (NEG) Urine Occult Blood NEG (NEG) Urine Nitrite NEG (NEG) Urine Bilirubin NEG (NEG) Urine Urobilinogen NEG (NEG) Urine Leukocyte Esterase NEG (NEG) Urine Opiates Screen NEG (NEG) Urine Methadone, Qualitative NEG (NEG) Urine Barbiturates NEG (NEG) Urine Phencyclidine (PCP) Level NEG (NEG) Ur Amphetamine/Methamphetamine NEG (NEG) MDMA (Ecstasy) Screen NEG (NEG) Urine Benzodiazepines Screen NEG (NEG) Urine Cocaine Metabolite NEG (NEG) Urine Marijuana (THC) NEG (NEG) White Blood Count 6.68 K/uL (4.8-10.8) Red Blood Count 5.11 M/uL (4.7-6.1) Hemoglobin 16.9 g/dL (14.0-18.0) Hematocrit 45.2 % (42-52) Mean Corpuscular Volume 88.5 fL (80-100) Mean Corpuscular Hemoglobin 33.1 pg (25-34) Mean Corpuscular Hemoglobin Concent 37.4 g/dl (32-36) Platelet Count 220 K/uL (130-400) Mean Platelet Volume 11.0 fL (7.4-10.4) Neutrophils (%) (Auto) 61.4 % Lymphocytes (%) (Auto) 28.6 % Monocytes (%) (Auto) 7.5 % Eosinophils (%) (Auto) 1.8 % Basophils (%) (Auto) 0.6 % Neutrophils # (Auto) 4.10 K/uL (1.4-6.5) Lymphocytes # (Auto) 1.91 K/uL (1.2-3.4) Monocytes # (Auto) 0.50 K/uL (0.11-0.59) Eosinophils # (Auto) 0.12 K/uL (0-0.5) Basophils # (Auto) 0.04 K/uL (0-0.2) RDW Standard Deviation 38.7 fL (36.4-46.3) RDW Coefficient of Variation 12.1 % (11.5-14.5) Immature Granulocyte % (Auto) 0.1 % Immature Granulocyte # (Auto) 0.01 K/uL (0.00-0.02) Anion Gap 7.0 mmol/L (3-11) Est Creatinine Clear Calc Drug Dose 122.1 ml/min Estimated GFR () 121.5 Estimated GFR (Non- 104.8 BUN/Creatinine Ratio 11.7 (10-20) Calcium Level 9.2 mg/dl (8.5-10.1) Total Bilirubin 0.6 mg/dl (0.2-1) Aspartate Amino Transf (AST/SGOT) 20 U/L (15-37) Alanine Aminotransferase (ALT/SGPT) 26 U/L (12-78) Alkaline Phosphatase 48 U/L (45-117) Total Protein 7.4 gm/dl (6.4-8.2) Albumin 4.4 gm/dl (3.4-5.0) Globulin 3.0 gm/dl (2.5-4.0) Albumin/Globulin Ratio 1.5 (0.9-2) Thyroid Stimulating Hormone (TSH) 1.680 uIu/ml (0.300-4.500) Salicylates Level < 1.7 mg/dl (2.8-20) Acetaminophen Level < 2 ug/ml (10-30) Ethyl Alcohol mg/dL < 3.0 mg/dl (0-3)
[2017-09-16 06:52] VITALS: BP_SYST 105; BP_SYST 117; BP_DIAS 64; BP_DIAS 70; PULSE 51; PULSE 84; TEMP 36.8
[2017-09-16] MEDS: LITHIUM CARBONATE SR 300 MG TAB (LITHOBID) PO SCH ×2 (07:41→21:37)
[2017-09-16] MEDS: HALOPERIDOL 5 MG TAB PO SCH ×2 (07:42→21:36)
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
[2017-09-17 07:06] VITALS: BP_SYST 105; BP_SYST 141; BP_DIAS 69; BP_DIAS 91; PULSE 56; PULSE 65; TEMP 36.6
[2017-09-17] MEDS: LITHIUM CARBONATE SR 300 MG TAB (LITHOBID) PO SCH (09:20)
[2017-09-17] MEDS: HALOPERIDOL 5 MG TAB PO SCH (09:20)
[2017-09-17] MEDS ORDERED: LTHCR300 PO (10:38)
[2017-09-17] MEDS ORDERED: HLD5 PO (10:38)
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
[2017-09-17 23:34] LABS: SYNTHETIC CANNABINOIDS QL URIN NEGATIVE (Negative)
== END 2017-09-17 11:45 | disposition home or self-care (01) | DRG 885 ==
LOC: C.EDB 10:23 → C.MHU 17:04
PROVIDERS: ADMIT Psychiatry & Neurology Child & Adolescent Psychiatry; ATTEND Psychiatry & Neurology Child & Adolescent Psychiatry
DX: F29 Unspecified psychosis not due to a substance or known physiological condition (principal); F90.9 Attention-deficit hyperactivity disorder, unspecified type; F39 Unspecified mood [affective] disorder; F42.9 Obsessive-compulsive disorder, unspecified; Z87.891 Personal history of nicotine dependence

== ENCOUNTER → 2017-09-18 | Outpatient (CLI) | payer OTHER ==
[~2017-09-18] MED LIST changes: +ARIP1INJ INJ; +CHOL1000 PO; +HLD5 PO; +LTHCR300 PO; +MISCCAP80 PO; +MULT-506 PO; +OMEG10007 PO; -RISP1TAB68 PO
== END | disposition home or self-care (01) ==
LOC: C.LAB1850 10:21
PROVIDERS: ATTEND Registered Nurse Psychiatric/Mental Health
DX: Z51.81 Encounter for therapeutic drug level monitoring (principal); Z79.899 Other long term (current) drug therapy

== ENCOUNTER 2017-10-09 12:42 | Inpatient (IN) | payer OTHER ==
[~2017-10-09] VITALS: Ht 172.7 cm; Wt 86.1 kg
[2017-10-09] MEDS ORDERED: LTHCR300 PO ×2 (13:20)
[2017-10-09] MEDS ORDERED: HALO5TAB PO (13:20)
[2017-10-09 13:46] LABS: HEMATOCRIT 43.3 % (42-52); HEMOGLOBIN 15.6 g/dL (14.0-18.0); MEAN CELL VOLUME 89.1 fL (80-100); MEAN CORPUSCULAR HEMOGLOBIN 32.1 pg (25-34); MEAN PLATELET VOLUME 10.5 fL (7.4-10.4); PLATELET COUNT 237 K/uL (130-400); RED CELL DISTRIBUTION WIDTH CV 12.3 % (11.5-14.5); RED CELL DISTRIBUTION WIDTH SD 39.6 fL (36.4-46.3); WHITE BLOOD COUNT 8.13 K/uL (4.8-10.8)
[2017-10-09 14:08] LABS: CALCIUM 9.2 mg/dl (8.5-10.1); CREATININE 0.95 mg/dl (0.60-1.40); POTASSIUM 3.9 mmol/L (3.5-5.1)
[2017-10-09 14:19] LABS: TOTAL PROTEIN 7.1 gm/dl (6.4-8.2)
[2017-10-09] MEDS ORDERED: LORAZEPAM 2 MG/ML 1 ML VIAL IV STA (15:23)
[2017-10-09] MEDS ORDERED: LORAZEPAM 1 MG TAB ONE (15:29)
[2017-10-09] MEDS ORDERED: LORAZEPAM 1 MG TAB SL STA (15:29)
[2017-10-09 16:59] VITALS: O2SAT 97
--- NOTE | 2017-10-09 17:27 | EMERGENCY ROOM VISIT NOTE ---
History Report prepared by Selwyn: Janette Goodman Under the Supervision of: Dr. Blake Oconnor M.D. First contact with patient: 12:48 Chief Complaint: MENTAL HEALTH EVALUATION Stated Complaint: MENTAL HEALTH EVALUATION History of Present Illness The patient is a 21 year old male who presents to the Emergency Room for a mental health evaluation. The patient states he is feeling more panicked. Per mother, the patient was doing well for a few days after his discharge in August. She reports the patient has slowly been worsening since being discharged on September 17. Per mother, the patient has not been sleeping. She reports the patient has been working out and not taking naps to try to help him sleep at night. The patient was seen by his therapist this morning and was referred to come to the ED for further evaluation. The patient states he is scared he is gonna hurt someone. He states he has thoughts of hurting his 5 year old little brother but notes he has never acted on them. Per mother, the patient has never hurt anyone. The patient states he feels like people are against him. The patient was started lithium and Haldol after his last admission. His medications are administered by his mother. She states he has been taking his medications as prescribed. The patient's mother reports her is "more in touch" and not as delusional as the last time he was here. The patient had a stomach bug five days ago but denies any fever. He denies any pain anywhere. Source of History: patient, parent Onset: since discharge in August Position: other (generalized) Quality: other (anxiety) Modifying Factors (Relieving): other (none) Associated Symptoms: No fevers, No abdominal pain Review of Systems See HPI for pertinent positives & negatives. A total of 10 systems reviewed and were otherwise negative. Past Medical & Surgical Medical Problems: (1) Anxiety (2) OCD (obsessive compulsive disorder) (3) Psychotic disorder Family History Patient reports no known family medical history. Social History Smoking Status: Former Smoker Alcohol Use: none Drug Use: none Marital Status: single Housing Status: lives with family Occupation Status: student Current/Historical Medications Scheduled Aripiprazole (Abilify Maintena), 400 MG INJ MONTHLY Haloperidol (Haldol), 5 MG PO BID [place] Carbonate ([place] Carbonate ER), 600 MG PO HS [place] Carbonate ([place] Carbonate ER), 300 MG PO QAM Allergies Coded Allergies: Cat Dander (Verified Allergy, Intermediate, respiratory s/s, 10/09/17) Physical Exam Vital Signs Date Time Temp Pulse Resp B/P (MAP) Pulse Ox O2 Delivery O2 Flow Rate FiO2 10/09/17 16:59 76 18 113/73 97 10/09/17 12:45 36.8 89 18 154/86 97 Room Air Physical Exam Constitutional: Vital signs reviewed. Eyes: Pupils are equal round reactive to light. Conjunctiva are noninjected. ENT: Pharynx is clear without erythema or exudate. Mucous membranes are moist. Neck supple without meningeal signs. Respiratory: Clear to auscultation bilaterally. Breath sounds are equal bilaterally. Cardiovascular: Regular rate and rhythm. No rubs or gallops. GI: Soft, nondistended and nontender. Bowel sounds are present. Musculoskeletal: No peripheral edema. No lower extremity tenderness. Integumentary: No cyanosis. Neurological: The patient is awake and alert. No focal deficits. Psychiatric: Very anxious, tearful at times, paranoid. Medical Decision & Procedures Laboratory Results 10/09/17 13:29 10/09/17 13:29 Test 10/09/17 12:11 10/09/17 13:11 10/09/17 13:29 Urine Opiates Screen NEG (NEG) Urine Methadone, Qualitative NEG (NEG) Urine Barbiturates NEG (NEG) Urine Phencyclidine (PCP) Level NEG (NEG) Ur Amphetamine/Methamphetamine NEG (NEG) MDMA (Ecstasy) Screen NEG (NEG) Urine Benzodiazepines Screen NEG (NEG) Urine Cocaine Metabolite NEG (NEG) Urine Marijuana (THC) NEG (NEG) Urine Color YELLOW Urine Appearance CLEAR (CLEAR) Urine pH 7.5 (4.5-7.5) Urine Specific [place] 1.014 (1.000-1.030) Urine Protein NEG (NEG) Urine Glucose (UA) NEG (NEG) Urine Ketones NEG (NEG) Urine Occult Blood NEG (NEG) Urine Nitrite NEG (NEG) Urine Bilirubin NEG (NEG) Urine Urobilinogen NEG (NEG) Urine Leukocyte Esterase NEG (NEG) Red Blood Count 4.86 M/uL (4.7-6.1) Mean Corpuscular Volume 89.1 fL (80-100) Mean Corpuscular Hemoglobin 32.1 pg (25-34) Mean Corpuscular Hemoglobin Concent 36.0 g/dl (32-36) RDW Standard Deviation 39.6 fL (36.4-46.3) RDW Coefficient of Variation 12.3 % (11.5-14.5) Mean Platelet Volume 10.5 fL (7.4-10.4) Anion Gap 6.0 mmol/L (3-11) Est Creatinine Clear Calc Drug Dose 133.5 ml/min Estimated GFR () 134.0 Estimated GFR (Non- 115.6 BUN/Creatinine Ratio 11.8 (10-20) Calcium Level 9.2 mg/dl (8.5-10.1) Total Bilirubin 0.8 mg/dl (0.2-1) Direct Bilirubin 0.2 mg/dl (0-0.2) Aspartate Amino Transf (AST/SGOT) 22 U/L (15-37) Alanine Aminotransferase (ALT/SGPT) 42 U/L (12-78) Alkaline Phosphatase 29 U/L (45-117) Total Protein 7.1 gm/dl (6.4-8.2) Albumin 4.0 gm/dl (3.4-5.0) Thyroid Stimulating Hormone (TSH) 2.670 uIu/ml (0.300-4.500) Salicylates Level < 1.7 mg/dl (2.8-20) Acetaminophen Level < 2 ug/ml (10-30) [place] Level 0.7 mMOL/L (0.6-1.2) Ethyl Alcohol mg/dL < 3.0 mg/dl (0-3) Laboratory results as reviewed by me. Medications Administered Medications (Trade) Dose Ordered Sig/Alan Route Start Time Stop Time Status Last Admin Dose Admin Lorazepam (Ativan Tab) 1 mg STK-MED ONCE .ROUTE 10/09/17 15:29 10/09/17 15:30 DC 10/09/17 15:32 1 MG ED Course 1252: The patient was evaluated in room B11B. A complete history and physical exam was performed. 1332: I updated the mental health case filler on the patient's case. 1509: The patient was evaluated by the case filler and they both agree with hospitalization. 1520: The patient's mother states he has been anxious and that he has had Ativan for his anxiety in the past. 1523: Ordered Lorazepam 1 mg IV. 1609: The patient has been accepted to [facility]. Medical Decision This is a 21-year-old male who presents or mental health evaluation. I did perform a limited focused review of portions of the patient's old chart on the electronic medical record. The patient was admitted in August for psychotic disorder. I did evaluate the patient as noted above. The patient is presenting with increased anxiety with thoughts of hurting his brother. He also feels that everyone is against him. I did treat him with Ativan 1 mg sublingually for his anxiety. I did order and personally review the patient's urine analysis as described above. I did order and review the patient's blood work as noted in the electronic medical record. I did medically clear the patient. I did have the mental health case filler evaluate the patient. She did feel that the patient required inpatient psychiatric care which is what the patient wanted. The patient was admitted to 3 [address]. behavioral unit voluntarily. Medication Reconcilliation Current Medication List: was personally reviewed by me Blood Pressure Screening Patient's blood pressure: Elevated blood pressure Blood pressure disposition: Referred to PCP Impression Primary Impression: Thought disorder Additional Impression: Anxiety Scribe Attestation The scribe's documentation has been prepared under my direct and personally reviewed by me in its entirety. I confirm that the note above accurately reflects all work, treatment, procedures, and medical decision making performed by me. Departure Information Dispostion Admitted as an inpatient Referrals Everardo Torres D.O. (PCP) Patient Instructions My [facility] Problem Qualifiers
[2017-10-09] MEDS ORDERED: SODIUM CHLORIDE 0.65% NA SOLN 45 ML (OCEAN) PRN (17:30)
[2017-10-09] MEDS ORDERED: ACETAMINOPHEN 325 MG TAB PO PRN (17:30)
[2017-10-09] MEDS ORDERED: BISMUTH SUBSALICYLATE PER ML OMNICELL CHARGE PO PRN (17:30)
[2017-10-09] MEDS ORDERED: ALUMINUM/MAGNESIUM SUSP 30 ML UDC PO PRN (17:30)
[2017-10-09] MEDS ORDERED: MAGNESIUM HYDROXIDE SUSP 30 ML UDC PO PRN (17:30)
[2017-10-09] MEDS ORDERED: hydrOXYzine HCL 25 MG TAB PO PRN (17:30)
[2017-10-09 18:38] VITALS: BP 113/73; PULSE 76; TEMP 36.8; BMI 28.9
[2017-10-09] MEDS ORDERED: FLUV100T12 PO (20:28)
[2017-10-09] MEDS ORDERED: FLUV25TA2 PO (20:28)
[2017-10-09] MEDS: HALOPERIDOL 5 MG TAB PO SCH (21:29)
[2017-10-09] MEDS ORDERED: LITHIUM CARBONATE SR 300 MG TAB (LITHOBID) PO SCH (22:00)
[2017-10-10 05:52] VITALS: BMI 28.9
[2017-10-10 05:59] VITALS: Ht 172.7 cm; Wt 86.1 kg
[2017-10-10 06:51] VITALS: BP_SYST 134; BP_SYST 142; BP_DIAS 85; BP_DIAS 88; PULSE 77; PULSE 99; TEMP 36.8
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
[2017-10-10] MEDS ORDERED: LITHIUM CARBONATE SR 300 MG TAB (LITHOBID) PO SCH (09:00)
[2017-10-10] MEDS: HALOPERIDOL 5 MG TAB PO SCH ×2 (09:16→21:09)
[2017-10-10] MEDS ORDERED: HALOPERIDOL 5 MG TAB PO PRN (09:30)
[2017-10-10] MEDS ORDERED: BENZTROPINE MESYLATE 1 MG TAB PO PRN (09:30)
[2017-10-10] MEDS ORDERED: LITHIUM CARBONATE SR 300 MG TAB (LITHOBID) PO ONE (09:30)
[2017-10-10] MEDS: LITHIUM CARBONATE SR 300 MG TAB (LITHOBID) PO SCH (21:09)
[2017-10-10] MEDS: hydrOXYzine HCL 25 MG TAB PO PRN (21:58)
[2017-10-11 06:46] VITALS: BP_SYST 109; BP_SYST 97; BP_DIAS 61; BP_DIAS 68; PULSE 48; PULSE 77; TEMP 36.4
[2017-10-11] MEDS: LITHIUM CARBONATE SR 300 MG TAB (LITHOBID) PO SCH ×2 (08:57→21:41)
[2017-10-11] MEDS: HALOPERIDOL 5 MG TAB PO SCH ×2 (08:57→21:40)
--- NOTE | 2017-10-11 15:06 | Psychiatric Progress Notes ---
Progress Note Date of Service Oct 11, 2017. Interval History Dustin Starks is a now 22-year-old male previously admitted on Sep 11-Sep 17, 2017 who continues to live in [place] with his parents. Dustin Starks was readmitted on a 201 voluntary commitment with intrussive thoughts/SI. [place] was increased on admission. Chief Complaint "Do I have to save the world?". Subjective Patient was seen & assessed interval progress reviewed with nursing. Patient wasn't able to tolerate a very long visit with his grandparents last night. He received prn Vistaril. He has seemed flatter than on previous interactions with staff. He cannot explain why he was looking at videos re: [place] shooting other than it showed up on his page. He had been documented as having HI in the ED but he again reiterates that he in no way wants to hurt himself or his brother. Staff note thought blocking. He is tearful this am but denies depression, just feels anxious about "saving the world". Review of Systems Psych: denies symptoms other than stated above Constitutional: denied Cardiovascular: denied GI: denied Neurologic: denied Remainder of 10 body systems also reviewed and denied other than noted above. Sleep Information Total Hours of Sleep: 7.25 Meal Information Percent of Breakfast Consumed: 100 Percent of Lunch Consumed: 50 Percent of Dinner Consumed: 100 Mental Status Exam During interview pt is: alert and oriented Appearance: appropriately groomed Eye contact is: fair Motor behavior is: no abnormal motor movements Speech: normal in rate, rhythm & volume Affect: labile Mood is: anxious Thought process: blocking, tangential Thought content: delusions Suicidal thought are: denied Homicidal thoughts are: denied Hallucinations: denies auditory, denies visual Cognition: language grossly intact, other (attention decreased) Intelligence estimated to be: consistent with level of education Insight: poor Judgement: poor Impression 22 yo male with significant psychotic symptoms despite 2 antipsychotics and therapeutic (though low) lithium level who was readmitted with violent preoccupations of an obsessive nature. Currently denies intent or plan but evidence of ongoing mood lability and thought disorganization. Was more manic in appearance last stay due to SSRI so dx of that time was likely bipolar but given residual symptoms/persistence there is increasing concern re: possible schizoaffective. Plan (1) Psychotic disorder lithium increased on admit as level 0.7 not true trough and active symptoms. consider lamictal as ongoing lability repeat lithium level on 10/14 (2) OCD (obsessive compulsive disorder) appears to be part of his psychotic process, hx of worsening on SSRIs, patient is requesting medication for anxiety--will do trial doses of Buspar 5 mg TID and monitor for activation hasn't tried SNRI but still would risk cycling Discharge / Aftercare Planning Primary Care Physician: Name: Dr. Torres Therapist: Name: Dr. Abel Uribe Date of Appointment: Oct 16, 2017 Antipsychotic Medications patient prescribed Haldol and Abilify. The patient is continuing 2 antipsychotics due to: a history of a minimum of 3 failed trials of monotherapy (LIST): Risperdal, Seroquel, Abilify Visit Code E&M Code: 31791 Protective Factors Assessment Employed: No Data Vital Signs Last 24 Hrs: Date Time Temp Pulse Resp B/P (MAP) Pulse Ox O2 Delivery O2 Flow Rate FiO2 10/11/17 06:46 36.4 48 16 97/61 77 109/68 Meds Administered Last 24 Hrs: Meds Administered (Past 24Hrs) Medications (Trade) Dose Ordered Sig/Alan Route Start Time Stop Time Status Last Admin Dose Admin Lorazepam (Ativan Tab) 1 mg STK-MED ONCE .ROUTE 10/09/17 15:29 10/09/17 15:30 DC 10/09/17 15:32 1 MG Hydroxyzine HCl (Vistaril Tab) 50 mg HSZ PRN PO 10/09/17 17:30 11/08/17 17:29 10/10/17 21:58 50 MG [place] Carbonate (Lithobid Tab) 300 mg QAM PO 10/10/17 09:00 10/10/17 09:24 DC 10/10/17 09:17 300 MG [place] Carbonate (Lithobid Tab) 600 mg HS PO 10/09/17 22:00 10/10/17 09:25 DC 10/09/17 21:29 600 MG Haloperidol (Haldol Tab) 5 mg BID PO 10/09/17 22:00 11/08/17 21:59 10/11/17 08:57 5 MG [place] Carbonate (Lithobid Tab) 300 mg ONE ONCE PO 10/10/17 09:30 10/10/17 09:48 DC 10/10/17 10:31 300 MG [place] Carbonate (Lithobid Tab) 600 mg BID PO 10/10/17 22:00 11/08/17 21:59 10/11/17 08:57 600 MG Haloperidol (Haldol Tab) 5 mg Q6 PRN PO 10/10/17 09:30 11/09/17 09:29 10/10/17 15:04 5 MG Buspirone HCl (Buspar Tab) 5 mg AC PO 10/11/17 12:15 11/10/17 12:14 10/11/17 13:09 5 MG
[2017-10-11] MEDS: hydrOXYzine HCL 25 MG TAB PO PRN (21:41)
[2017-10-12 06:49] VITALS: BP_SYST 108; BP_SYST 118; BP_DIAS 63; BP_DIAS 72; PULSE 48; PULSE 67; TEMP 36.4
[2017-10-12] MEDS: LITHIUM CARBONATE SR 300 MG TAB (LITHOBID) PO SCH ×2 (08:36→20:38)
[2017-10-12] MEDS: HALOPERIDOL 5 MG TAB PO SCH ×2 (08:36→20:37)
--- NOTE | 2017-10-12 13:33 | Psychiatric Progress Notes ---
Progress Note Date of Service Oct 12, 2017. Interval History Dustin Starks is a now 22-year-old male previously admitted on Sep 11-Sep 17, 2017 who continues to live in [place] with his parents. Dustin Starks was readmitted on a 201 voluntary commitment with intrussive thoughts/SI. [place] was increased on admission. Chief Complaint "Pretty good.". Subjective Patient was seen & assessed interval progress reviewed with Treatment Team. Will says that he is doing well today and denies any thoughts to harm his little brother. He admits to having [employer] because he felt that would be more acceptable than hurting his brother, "I would never do anything to hurt him, I love him.". He denies other intrusive thoughts. He admits that he had ideas of reference from the TV prior to admission, but not since, but denies thought insertion or broadcasting. He denies aud/vis hallucinations. He is focused on just having gotten a new roommate, someone he knew growing up and is fearing that he won't "open up because he would be embarrassed, "I really care about people.". He denies racing thoughts saying in fact that sometimes "I just go blank". Nursing reports that he has been anxious, and at times labile in the milieu. He is also described as being loose, disorganized. Today he is complaining of feeling tired, but denies side effects to meds. Review of Systems Constitutional: + fatigue ENT: No hearing loss, No unusual epistaxis, No nasal symptoms, No sore throat, No tinnitus, No dental problems, No trouble swallowing, No problem reported Respiratory: No cough, No sputum, No wheezing, No shortness of breath, No dyspnea on exertion, No dyspnea at rest, No hemoptysis, No problem reported Cardiovascular: No chest pain, No orthopnea, No PND, No edema, No claudication , No palpitations, No problem reported Abdomen: No pain, No nausea, No vomiting, No diarrhea, No constipation, No GI bleeding, No problem reported Musculoskeletal: No joint pain, No muscle pain, No swelling, No calf pain, No problem reported Neurologic: No memory loss, No paralysis, No weakness, No numbness/tingling, No vertigo, No balance problems, No problem reported Psychiatric: + anxiety Integumentary: No rash, No itch, No new/changing skin lesions, No color change , No bleeding, No problem reported Sleep Information Total Hours of Sleep: 10.50 Meal Information Percent of Breakfast Consumed: 100 Percent of Lunch Consumed: 50 Percent of Dinner Consumed: 100 Mental Status Exam During interview pt is: alert and oriented Appearance: appropriately groomed Eye contact is: fair Motor behavior is: no abnormal motor movements Speech: normal in rate, rhythm & volume Affect: labile Mood is: anxious Thought process: blocking, tangential Thought content: delusions Suicidal thought are: denied Homicidal thoughts are: denied Hallucinations: denies auditory, denies visual Cognition: language grossly intact Intelligence estimated to be: consistent with level of education Insight: poor Judgement: poor Impression Denying obsessive thoughts to harm others today. He believes that the haldol has been helpful, but makes him tired and he hopes to accomodate. Does not appear manic, lithium level 0.7. No evidence of lability in the milieu. Agree that schizoaffective disorder may better describe his condition, rather than bipolar. He received Maintenna on 10/05 making a change in antipsychotics difficult but would consider a trial of Invega and on to Sustenna. For now will continue haldol, encourage uses of prns and adjust dosing based on 24 hr use. Plan (1) Psychotic disorder lithium increased on admit as level 0.7 not true trough and active symptoms. consider lamictal as ongoing lability repeat lithium level on 10/14 10/12 - Continue haldol and encourage use of prn's when needed - Consider switch to Invega and Sustenna since Maintenna does not appear to be effective (3 hospitalizations in short order). - Reality orientation (2) OCD (obsessive compulsive disorder) appears to be part of his psychotic process, hx of worsening on SSRIs, patient is requesting medication for anxiety--will do trial doses of Buspar 5 mg TID and monitor for activation hasn't tried SNRI but still would risk cycling Discharge / Aftercare Planning Primary Care Physician: Name: Dr. Torres Date of Appointment: Dec 28, 2017 Time of Appointment: 7:55 AM Psychiatrist: Name: [facility] Ani Ortez Date of Appointment: Nov 02, 2017 Time of Appointment: 10:45 AM Therapist: Name: Dr. Abel Uribe Date of Appointment: Oct 16, 2017 Time of Appointment: 9 a.m. Other: Name of Appointment #1: [facility] through [facility] Phone Number: Appointment #1 Notes: As needed, determined by pt Antipsychotic Medications patient prescribed Haldol and Abilify. The patient is continuing 2 antipsychotics due to: a history of a minimum of 3 failed trials of monotherapy (LIST): Risperdal, Seroquel, Abilify Visit Code E&M Code: 63278 Risk Factors Assessment Male: Yes : Yes /single/: Yes Higher / Fall in social status: No Health problems: No Mental Health Diagnoses: Yes Substance use disorders: No Previous psychiatric stay: Yes Hopelessness: No Smoker: No Protective Factors Assessment Mandaeism beliefs: Yes : No Responsible for young children: No Employed: No Stable relationships: Yes Supportive family: Yes Good rapport with provider: Yes Data Vital Signs Last 24 Hrs: Date Time Temp Pulse Resp B/P (MAP) Pulse Ox O2 Delivery O2 Flow Rate FiO2 10/12/17 06:49 36.4 48 18 108/63 67 118/72 Meds Administered Last 24 Hrs: Meds Administered (Past 24Hrs) Medications (Trade) Dose Ordered Sig/Alan Route Start Time Stop Time Status Last Admin Dose Admin [place] Carbonate (Lithobid Tab) 600 mg BID PO 10/10/17 22:00 11/08/17 21:59 10/12/17 08:36 600 MG Buspirone HCl (Buspar Tab) 5 mg AC PO 10/11/17 12:15 11/10/17 12:14 10/12/17 12:48 5 MG Lab Results Last 24 Hrs: 10/09/17 13:29 10/09/17 13:29 Test 10/09/17 12:11 10/09/17 13:11 10/09/17 13:29 Urine Opiates Screen NEG (NEG) Urine Methadone, Qualitative NEG (NEG) Urine Barbiturates NEG (NEG) Urine Phencyclidine (PCP) Level NEG (NEG) Ur Amphetamine/Methamphetamine NEG (NEG) MDMA (Ecstasy) Screen NEG (NEG) Urine Benzodiazepines Screen NEG (NEG) Urine Cocaine Metabolite NEG (NEG) Urine Marijuana (THC) NEG (NEG) Urine Color YELLOW Urine Appearance CLEAR (CLEAR) Urine pH 7.5 (4.5-7.5) Urine Specific [place] 1.014 (1.000-1.030) Urine Protein NEG (NEG) Urine Glucose (UA) NEG (NEG) Urine Ketones NEG (NEG) Urine Occult Blood NEG (NEG) Urine Nitrite NEG (NEG) Urine Bilirubin NEG (NEG) Urine Urobilinogen NEG (NEG) Urine Leukocyte Esterase NEG (NEG) Red Blood Count 4.86 M/uL (4.7-6.1) Mean Corpuscular Volume 89.1 fL (80-100) Mean Corpuscular Hemoglobin 32.1 pg (25-34) Mean Corpuscular Hemoglobin Concent 36.0 g/dl (32-36) RDW Standard Deviation 39.6 fL (36.4-46.3) RDW Coefficient of Variation 12.3 % (11.5-14.5) Mean Platelet Volume 10.5 fL (7.4-10.4) Anion Gap 6.0 mmol/L (3-11) Est Creatinine Clear Calc Drug Dose 133.5 ml/min Estimated GFR () 134.0 Estimated GFR (Non- 115.6 BUN/Creatinine Ratio 11.8 (10-20) Calcium Level 9.2 mg/dl (8.5-10.1) Total Bilirubin 0.8 mg/dl (0.2-1) Direct Bilirubin 0.2 mg/dl (0-0.2) Aspartate Amino Transf (AST/SGOT) 22 U/L (15-37) Alanine Aminotransferase (ALT/SGPT) 42 U/L (12-78) Alkaline Phosphatase 29 U/L (45-117) Total Protein 7.1 gm/dl (6.4-8.2) Albumin 4.0 gm/dl (3.4-5.0) Thyroid Stimulating Hormone (TSH) 2.670 uIu/ml (0.300-4.500) Salicylates Level < 1.7 mg/dl (2.8-20) Acetaminophen Level < 2 ug/ml (10-30) [place] Level 0.7 mMOL/L (0.6-1.2) Ethyl Alcohol mg/dL < 3.0 mg/dl (0-3)
[2017-10-13 06:53] VITALS: BP_SYST 107; BP_SYST 145; BP_DIAS 71; PULSE 45; PULSE 80; TEMP 36.5
[2017-10-13] MEDS: LITHIUM CARBONATE SR 300 MG TAB (LITHOBID) PO SCH ×2 (08:57→21:02)
[2017-10-13] MEDS: HALOPERIDOL 5 MG TAB PO SCH ×2 (08:57→21:02)
--- NOTE | 2017-10-13 11:38 | Psychiatric Progress Notes ---
Progress Note Date of Service Oct 13, 2017. Interval History Dustin Starks is a now 22-year-old male previously admitted on Sep 11-Sep 17, 2017 who continues to live in [place] with his parents. Dustin Starks was readmitted on a 201 voluntary commitment with intrussive thoughts/SI. [place] was increased on admission. Chief Complaint "Better". Subjective Patient was seen & assessed interval progress reviewed with Nursing. Staff report he is going to some groups but is flat and retreats to his room/bed at times. He had a meeting with his mother this morning, which went well. She was supportive of him staying in treatment, as they feel he left too soon after his last hospitalization as he wanted to be home for [place]. Today the patient was seen with Rafi Sellers, MS3, with his permission. He says he is "better, less crazy thoughts, suicidal thoughts." He describes "scary " thoughts of "me shooting myself in the mouth," but says he "didn't want to do that." Describes intrusive thoughts and has tried to learn to "just accept them and they'll go away, or tell myself I'll worry about it later, and then I just kind of forget to worry about it." Says he has been spending his time going to group and "daily goals, treatment goals, to worry about myself only, just get better." Describes mood as "pretty happy I guess, I really like it here, it's like vacation." Sleep is improving, but notes he had "panic" last night and talked to nursing staff, which helped. He describes acute onset of feeling unable to breathe while he was trying to go to sleep, with intense worry "about helping other people, I feel like I need to be in perfect harmony with everyone. " He was able to fall asleep after talking with staff, and felt rested this morning. He is napping during the day at times. He hopes to get a PT job when he goes home, and already applied at a [employer] shop, [employer], and a [employer] restaurant. He denies HI since admission, and states that although he had intrusive thoughts to harm others prior to admission, he says he "never wanted to do that." He wants to work on a plan of what he could do if these thoughts ever recurred. He says he has "good news, my father's employee said he could talk to me if I ever needed someone to talk to." Talked about his lack of "harmony" with his father, saying his father thought he should get a job right away after his last discharge. Although his father wasn't at the meeting, he did visit, and the patient says it went well. Sleep Information Total Hours of Sleep: 8.00 Meal Information Percent of Breakfast Consumed: 100 Percent of Lunch Consumed: 50 Percent of Dinner Consumed: 90 Mental Status Exam During interview pt is: alert and oriented, cooperative Appearance: appropriately dressed, appropriately groomed, other (athletic appearing) Eye contact is: fair Motor behavior is: steady gait & station, no abnormal motor movements Speech: normal in rate, rhythm & volume Affect: other (mildly expansive) Mood is: other ("better") Thought process: goal directed, circumstantial Thought content: cognitive distortions Suicidal thought are: denied Homicidal thoughts are: denied Hallucinations: denies auditory, denies visual Cognition: language grossly intact Intelligence estimated to be: consistent with level of education Insight: fair Judgement: poor Medication Trials Abilify, Luvox, Prozac, Risperdal, and Seroquel Impression Intrusive thoughts to harm himself and others are decreasing, but he remains distressed by them, with episodic anxiety and feeling easily overwhelmed. The addition of haldol has been helpful, but makes him tired, and lithium was increased on admission with trough level tomorrow. Agree that schizoaffective disorder may better describe his condition, rather than bipolar. He received Maintenna on 10/05 making a change in antipsychotics difficult, but could consider a trial of Invega and on to Sustenna. For now will continue haldol, encourage uses of prns and adjust dosing based on 24 hr use. Plan (1) Psychotic disorder lithium increased on admit as level 0.7 not true trough and active symptoms. consider lamictal as ongoing lability repeat lithium level on 10/14 10/12 - Continue haldol and encourage use of prn's when needed - Consider switch to Invega and Sustenna since Maintena does not appear to be effective (3 hospitalizations in short order). - Reality orientation 1/16 - Confirmed last dose of Abilify Maintena 400 mg IM was given on 10/05/2017. - [place] increased from 300 mg every morning and 600 mg daily at bedtime to 600 mg twice a day on admission; repeat trough level tomorrow. Should consolidate bedtime prior to discharge for improved outpatient compliance and decreased risk of kidney damage. - Continue haloperidol 5 mg twice a day and buspirone 5 mg 3 times a day. - Continue when necessary Haldol, has not required a dose since 10/10/2017. - Coordinate care with outpatient providers, including therapist Barry Uribe and psychiatrist Dr. Lovett at [facility]. - Would recommend a more structured outpatient care, such as psych rehabilitation, PHP, or IOP, given 3 [id number] inpatient hospitalizations with rapid decompensation after discharge. (2) OCD (obsessive compulsive disorder) appears to be part of his psychotic process, hx of worsening on SSRIs, patient is requesting medication for anxiety--will do trial doses of Buspar 5 mg TID and monitor for activation hasn't tried SNRI but still would risk cycling Discharge / Aftercare Planning Primary Care Physician: Name: Dr. Torres Date of Appointment: Dec 28, 2017 Time of Appointment: 7:55 AM Psychiatrist: Name: [facility] - Dr. Ortez Date of Appointment: Nov 02, 2017 Time of Appointment: 10:45 AM Therapist: Name: Dr. Abel Uribe Date of Appointment: Oct 16, 2017 Time of Appointment: 9 a.m. Other: Name of Appointment #1: Sarah - [employer] through [facility] Phone Number: Appointment #1 Notes: As needed, determined by pt Antipsychotic Medications patient prescribed Haldol and Abilify. The patient is continuing 2 antipsychotics due to: a history of a minimum of 3 failed trials of monotherapy (LIST): Risperdal, Seroquel, Abilify Visit Code E&M Code: 33139 Risk Factors Assessment Male: Yes : Yes /single/: Yes Higher / Fall in social status: No Health problems: No Mental Health Diagnoses: Yes Substance use disorders: No Previous psychiatric stay: Yes Hopelessness: No Smoker: No Protective Factors Assessment Orthodoxy beliefs: Yes : No Responsible for young children: No Employed: No Stable relationships: Yes Supportive family: Yes Good rapport with provider: Yes Data Vital Signs Last 24 Hrs: Date Time Temp Pulse Resp B/P (MAP) Pulse Ox O2 Delivery O2 Flow Rate FiO2 10/13/17 06:53 36.5 45 16 107/71 80 145/71 Meds Administered Last 24 Hrs: Meds Administered (Past 24Hrs) Medications (Trade) Dose Ordered Sig/Alan Route Start Time Stop Time Status Last Admin Dose Admin Buspirone HCl (Buspar Tab) 5 mg AC PO 10/11/17 12:15 11/10/17 12:14 10/13/17 08:57 5 MG
[2017-10-14 06:42] VITALS: BP_SYST 117; BP_SYST 150; BP_DIAS 70; BP_DIAS 92; PULSE 52; PULSE 81; TEMP 36.5
[2017-10-14] MEDS: HALOPERIDOL 5 MG TAB PO SCH ×2 (08:22→21:06)
[2017-10-14] MEDS: LITHIUM CARBONATE SR 300 MG TAB (LITHOBID) PO SCH (09:27)
--- NOTE | 2017-10-14 12:17 | Psychiatric Progress Notes ---
Progress Note Date of Service Oct 14, 2017. Interval History Dustin Starks is a now 22-year-old male previously admitted on Sep 11-Sep 17, 2017 who continues to live in [place] with his parents. Dustin Starks was readmitted on a 201 voluntary commitment with intrussive thoughts/SI. [place] was increased on admission. Chief Complaint "Good.". Subjective Patient was seen & assessed interval progress reviewed with Treatment Team. The patient reports that his mood is "great" today. He denies having any more thoughts to harm his younger brother, or anyone else, "I love him. He does goofy things". He denies feeling angry for any reason. He denies any other intrusive thoughts and denies any repetitive or ritualized behaviors. when asked how long he thought he needed to be in the hospital he said "5 days", but when asked what he wanted to accomplish, he was unsure other than to say "a safety plan". He says that his family meeting with parents yesterday went well , and that he plans to apply for a job after discharge. He denies being religiously preoccupied, something that has been present in the past, saying that "its a more casual thing now.". Informed that lithium level is 1.0. He denies N/V/D and no tremors to outstretched hands. Review of Systems Constitutional: No fever, No chills, No sweats, No weight loss, No weakness, No fatigue, No problem reported ENT: No hearing loss, No unusual epistaxis, No nasal symptoms, No sore throat, No tinnitus, No dental problems, No trouble swallowing, No problem reported Respiratory: No cough, No sputum, No wheezing, No shortness of breath, No dyspnea on exertion, No dyspnea at rest, No hemoptysis, No problem reported Cardiovascular: No chest pain, No orthopnea, No PND, No edema, No claudication , No palpitations, No problem reported Abdomen: No pain, No nausea, No vomiting, No diarrhea, No constipation, No GI bleeding, No problem reported Musculoskeletal: No joint pain, No muscle pain, No swelling, No calf pain, No problem reported Neurologic: No memory loss, No paralysis, No weakness, No numbness/tingling, No vertigo, No balance problems, No problem reported Psychiatric: No depression symptoms, No anhedonism, No anxiety, No insomnia, No substance abuse, No problem reported Integumentary: No rash, No itch, No new/changing skin lesions, No color change , No bleeding, No problem reported Sleep Information Total Hours of Sleep: 7.75 Meal Information Percent of Breakfast Consumed: 100 Percent of Lunch Consumed: 100 Percent of Dinner Consumed: 90 Mental Status Exam During interview pt is: alert and oriented, cooperative Appearance: appropriately dressed, appropriately groomed Eye contact is: good Motor behavior is: steady gait & station, no abnormal motor movements Speech: normal in rate, rhythm & volume Affect: blunted Mood is: other ("better") Thought process: goal directed Thought content: reality based without delusions Suicidal thought are: denied Homicidal thoughts are: denied Hallucinations: denies auditory, denies visual Cognition: language grossly intact Intelligence estimated to be: consistent with level of education Insight: fair Judgement: poor Medication Trials Abilify, Luvox, Prozac, Risperdal, and Seroquel Impression Denies intrusive thoughts, rituals or other evidence of psychosis. The quality of the interaction remains odd, superficial, naive. In reviewing the psych testing records from 2013, there were similar reports that he was odd, with various preoccupations/delusions over the years. Dx at that time were psychotic disorder NOS, ADHD combined type by history and rule out bipolar disorder. There is a vacantness to him, an inability to be complex in his thinking that does not match his cognitive abilities to date. Will continue work on safety plan, and if able to sustain his improvements, may be able to discharge in the next few days. Plan (1) Psychotic disorder lithium increased on admit as level 0.7 not true trough and active symptoms. consider lamictal as ongoing lability repeat lithium level on 10/14 10/12 - Continue haldol and encourage use of prn's when needed - Consider switch to Invega and Sustenna since Maintena does not appear to be effective (3 hospitalizations in short order). - Reality orientation 10/13 - Confirmed last dose of Abilify Maintena 400 mg IM was given on 10/05/2017. - [place] increased from 300 mg every morning and 600 mg daily at bedtime to 600 mg twice a day on admission; repeat trough level tomorrow. Should consolidate bedtime prior to discharge for improved outpatient compliance and decreased risk of kidney damage. - Continue haloperidol 5 mg twice a day and buspirone 5 mg 3 times a day. - Continue when necessary Haldol, has not required a dose since 10/10/2017. - Coordinate care with outpatient providers, including therapist Barry Uribe and psychiatrist Dr. Lovett at [facility]. - Would recommend a more structured outpatient care, such as psych rehabilitation, PHP, or IOP, given 3 [id number] inpatient hospitalizations with rapid decompensation after discharge. 10/14 -[place] level 1.0. Continue current meds and will consolidate to q HS (2) OCD (obsessive compulsive disorder) appears to be part of his psychotic process, hx of worsening on SSRIs, patient is requesting medication for anxiety--will do trial doses of Buspar 5 mg TID and monitor for activation hasn't tried SNRI but still would risk cycling 10/14 - Denies obsessions or compulsions today Discharge / Aftercare Planning Primary Care Physician: Name: Dr. Torres Date of Appointment: Dec 28, 2017 Time of Appointment: 7:55 AM Appointment Notes: [address] [facility] [address] Psychiatrist: Name: [facility] - Dr. Ortez Date of Appointment: Nov 02, 2017 Time of Appointment: 10:45 AM Appointment Notes: [address] [facility] [address] Therapist: Name: Dr. Abel Uribe Date of Appointment: Oct 16, 2017 Time of Appointment: 9:00 a.m. Appointment Notes: [address] [address] Other: Name of Appointment #1: Sarah - [employer] through [facility] Phone Number: Appointment #1 Notes: As needed, determined by pt Antipsychotic Medications patient prescribed Haldol and Abilify. The patient is continuing 2 antipsychotics due to: a history of a minimum of 3 failed trials of monotherapy (LIST): Risperdal, Seroquel, Abilify Visit Code E&M Code: 69097 Risk Factors Assessment Male: Yes : Yes /single/: Yes Higher / Fall in social status: No Health problems: No Mental Health Diagnoses: Yes Substance use disorders: No Previous psychiatric stay: Yes Hopelessness: No Smoker: No Protective Factors Assessment Yazidism beliefs: Yes : No Responsible for young children: No Employed: No Stable relationships: Yes Supportive family: Yes Good rapport with provider: Yes Data Vital Signs Last 24 Hrs: Date Time Temp Pulse Resp B/P (MAP) Pulse Ox O2 Delivery O2 Flow Rate FiO2 10/14/17 06:42 36.5 52 16 117/70 81 150/92 Meds Administered Last 24 Hrs: Current Inpatient Medications Medications (Trade) Dose Ordered Sig/Alan Route Start Time Stop Time Status Last Admin Dose Admin Acetaminophen (Tylenol Tab) 650 mg Q4H PRN PO 10/09/17 17:30 11/08/17 17:29 Bismuth Subsalicylate (Kaopectate Liqd) 15 ml PRN PRN PO 10/09/17 17:30 11/08/17 17:29 Al Hydroxide/Mg Hydroxide (Maalox Susp) 30 ml Q4H PRN PO 10/09/17 17:30 11/08/17 17:29 Magnesium Hydroxide (Milk Of Magnesia Susp) 30 ml DAILY PRN PO 10/09/17 17:30 11/08/17 17:29 Sodium Chloride ([place] Nasal [place]) PRN PRN NA 10/09/17 17:30 11/08/17 17:29 Hydroxyzine HCl (Vistaril Tab) 50 mg HSZ PRN PO 10/09/17 17:30 11/08/17 17:29 10/11/17 21:41 50 MG Hydroxyzine HCl (Vistaril Tab) 25 mg Q4H PRN PO 10/09/17 17:30 11/08/17 17:29 10/12/17 20:33 25 MG Miscellaneous Information (Order Awaiting Action) 1 ea QS N/A 10/10/17 00:00 11/09/17 00:00 Haloperidol (Haldol Tab) 5 mg BID PO 10/09/17 22:00 11/08/17 21:59 10/14/17 08:22 5 MG [place] Carbonate (Lithobid Tab) 600 mg BID PO 10/10/17 22:00 11/08/17 21:59 10/14/17 09:27 600 MG Haloperidol (Haldol Tab) 5 mg Q6 PRN PO 10/10/17 09:30 11/09/17 09:29 10/10/17 15:04 5 MG Benztropine Mesylate (Cogentin Tab) 1 mg BID PRN PO 10/10/17 09:30 11/09/17 09:29 Buspirone HCl (Buspar Tab) 5 mg AC PO 10/11/17 12:15 11/10/17 12:14 10/14/17 08:21 5 MG Lab Results Last 24 Hrs: Last 24 Hours Test 10/14/17 08:17 [place] Level 1.0 mMOL/L
[2017-10-14] MEDS ORDERED: LITHIUM CARBONATE SR 300 MG TAB (LITHOBID) PO ONE (21:00)
[2017-10-15 06:25] VITALS: BP_SYST 105; BP_SYST 97; BP_DIAS 59; BP_DIAS 67; PULSE 52; PULSE 54; TEMP 36.9
[2017-10-15] MEDS: HALOPERIDOL 5 MG TAB PO SCH ×2 (09:28→21:12)
--- NOTE | 2017-10-15 13:07 | Psychiatric Progress Notes ---
Progress Note Date of Service Oct 15, 2017. Interval History Dustin Starks is a now 22-year-old male previously admitted on Sep 11-Sep 17, 2017 who continues to live in [place] with his parents. Dustin Starks was readmitted on a 201 voluntary commitment with intrussive thoughts/SI. [place] was increased on admission. Chief Complaint "My anxiety is going down". Subjective Patient was seen & assessed interval progress reviewed with Nursing who report the patient slept well last evening with the exception of an episode of increased anxiety and panic. Pt was reported to have reached out to staff who were able to help him process his anxiety and he was eventually able to return to bed. Staff continues to reports dulled affect compared to previous admission and state that the patient has voiced concerns about difficulty with processing during groups. Pt was seen today to assess progress since admission. He reports he feels that he is doing much better, but still has periodic anxiety. Pt states he wants to make "triple sure" he is ready for discharge and feels like he has been taking steps in the right direction. Pt denies SI at today's encounter and states he has not had intrusive thoughts about harming his brother today, though has been removed from the stressor during hospitalization. He verifies anxiety early this morning requiring staff intervention and states he is unsure what was bothering him at that time. Anxiety is continuing to improve during his time here. Pt has been working well in groups and states he is planning to work on mindfulness techniques during the remainder of his hospitalization as he feels that might be helpful to ease his anxiety. Pt denies medication side effects at today's encounter. He was reminded about consolidation of [place] dosing to 1200mg at bedtime. He was encouraged to report any side effects as we continue to monitor for response and adverse effects. Pt reports he feels buspirone has been beneficial for daytime anxiety. Pt denies SI/HI, A/V hallucinations and paranoia today. Review of Systems Psych: denies symptoms other than stated above Constitutional: denied Cardiovascular: denied GI: denied Neurologic: denied Remainder of 10 body systems also reviewed and denied other than noted above. Sleep Information Total Hours of Sleep: 9.75 Meal Information Percent of Breakfast Consumed: 75 Percent of Lunch Consumed: 100 Percent of Dinner Consumed: 100 Mental Status Exam During interview pt is: alert and oriented, cooperative Appearance: appropriately dressed, appropriately groomed, appeared stated age Eye contact is: good Motor behavior is: steady gait & station, no abnormal motor movements Speech: normal in rate, rhythm & volume Affect: blunted Mood is: other ("anxiety is going down") Thought process: goal directed, clear, coherent Thought content: reality based without delusions Suicidal thought are: denied Homicidal thoughts are: denied Hallucinations: denies auditory, denies visual Cognition: language grossly intact Intelligence estimated to be: consistent with level of education Insight: fair Judgement: poor Medication Trials Abilify, Luvox, Prozac, Risperdal, and Seroquel Impression Continuing to improve in regard to intrusive thoughts and anxiety. Affect remains blunted in comparison to previous admission, staff reporting difficulty with processing during groups. Could consider reduction in AM dose of Haldol if patient is finding it distressing, though might be beneficial as intrusive thoughts have declined. Pt reports he is feeling better, but with recent consolidation of [place] to qHS dosing, would be beneficial to remain in inpatient treatment until we can guarantee stability off of the unit. Pt has had two prior admissions of rather short length in comparison to his presenting symptoms. Would benefit from clear and stable discharge so as to decrease likelihood of readmission in a short period of time. Plan (1) Psychotic disorder lithium increased on admit as level 0.7 not true trough and active symptoms. consider lamictal as ongoing lability repeat lithium level on 10/14 10/12 - Continue haldol and encourage use of prn's when needed - Consider switch to Invega and Sustenna since Maintena does not appear to be effective (3 hospitalizations in short order). - Reality orientation 10/13 - Confirmed last dose of Abilify Maintena 400 mg IM was given on 10/05/2017. - [place] increased from 300 mg every morning and 600 mg daily at bedtime to 600 mg twice a day on admission; repeat trough level tomorrow. Should consolidate bedtime prior to discharge for improved outpatient compliance and decreased risk of kidney damage. - Continue haloperidol 5 mg twice a day and buspirone 5 mg 3 times a day. - Continue when necessary Haldol, has not required a dose since 10/10/2017. - Coordinate care with outpatient providers, including therapist Barry Uribe and psychiatrist Dr. Lovett at [facility]. - Would recommend a more structured outpatient care, such as psych rehabilitation, PHP, or IOP, given 3 [id number] inpatient hospitalizations with rapid decompensation after discharge. 10/14 -[place] level 1.0. Continue current meds and will consolidate to q HS 10/15 - To receive HS dosing of [place] 1200mg consolidated dose this evening. - Continue other medications as above. - Continue to monitor anxiety and medication response over next few days as minor adjustments have been made. - Continue to encourage participation in groups as patient seems to be gaining insight through the structure and opportunity to engage with peers. (2) OCD (obsessive compulsive disorder) appears to be part of his psychotic process, hx of worsening on SSRIs, patient is requesting medication for anxiety--will do trial doses of Buspar 5 mg TID and monitor for activation hasn't tried SNRI but still would risk cycling 10/14 - Denies obsessions or compulsions today Discharge / Aftercare Planning Primary Care Physician: Name: Dr. Torres Date of Appointment: Dec 28, 2017 Time of Appointment: 7:55 AM Appointment Notes: [address] [facility] [address] Psychiatrist: Name: [facility] Ani Ortez Date of Appointment: Nov 02, 2017 Time of Appointment: 10:45 AM Appointment Notes: [address] [facility] [address] Therapist: Name: Dr. Abel Uribe Date of Appointment: Oct 16, 2017 Time of Appointment: 9:00 a.m. Appointment Notes: [address] [facility] [address] [place] [address] Partial or Psych Rehab: Name: [facility] Date of Appointment: Oct 21, 2017 Time of Appointment: 1:00 pm Appointment Notes: [address] [facility] [place] [address] Other: Name of Appointment #1: Sarah - [place] through [facility] Phone Number: Appointment #1 Notes: As needed, determined by pt Antipsychotic Medications patient prescribed Haldol and Abilify. The patient is continuing 2 antipsychotics due to: a history of a minimum of 3 failed trials of monotherapy (LIST): Risperdal, Seroquel, Abilify Visit Code E&M Code: 13257 Inventory Assets Strengths: supportive family, established outpatient providers, intelligent Needs: control of anxiety, stability of symptoms with proper medication regimen. Risk Factors Assessment Male: Yes : Yes /single/: Yes Higher / Fall in social status: No Health problems: No Mental Health Diagnoses: Yes Substance use disorders: No Previous psychiatric stay: Yes Hopelessness: No Smoker: No Protective Factors Assessment Muslim beliefs: Yes : No Responsible for young children: No Employed: No Stable relationships: Yes Supportive family: Yes Good rapport with provider: Yes Data Vital Signs Last 24 Hrs: Date Time Temp Pulse Resp B/P (MAP) Pulse Ox O2 Delivery O2 Flow Rate FiO2 10/15/17 06:25 36.9 54 14 105/67 52 97/59 Meds Administered Last 24 Hrs: Meds Administered (Past 24Hrs) Medications (Trade) Dose Ordered Sig/Alan Route Start Time Stop Time Status Last Admin Dose Admin [place] Carbonate (Lithobid Tab) 600 mg 2100 ONCE PO 10/14/17 21:00 10/14/17 21:01 DC 10/14/17 21:06 600 MG
[2017-10-15] MEDS: LITHIUM CARBONATE SR 300 MG TAB (LITHOBID) PO SCH (21:12)
[2017-10-16 06:40] VITALS: BP_SYST 105; BP_SYST 109; BP_DIAS 59; BP_DIAS 66; PULSE 46; PULSE 71; TEMP 36.8
[2017-10-16] MEDS: HALOPERIDOL 5 MG TAB PO SCH ×2 (09:00→21:09)
--- NOTE | 2017-10-16 14:16 | Psychiatric Progress Notes ---
Progress Note Date of Service Oct 16, 2017. Interval History Dustin Starks is a now 22-year-old male previously admitted on Sep 11-Sep 17, 2017 who continues to live in [place] with his parents. Dustin Starks was readmitted on a 201 voluntary commitment with intrussive thoughts/SI. Nunn was increased on admission. Chief Complaint "I'm getting there". meaning less anxious Subjective Patient was seen & assessed interval progress reviewed with Treatment Team. Patient describes some sedation, finds Buspar helpful for anxiety/panic like feeling. Denies thoughts to harm self or others and is able to speak with 5 yo brother by phone without triggering. He seems to be a bit disorganized still as unable to play simple card game without prompting. Review of Systems Psych: denies symptoms other than stated above Constitutional: fatigue Cardiovascular: denied GI: denied Neurologic: denied Remainder of 10 body systems also reviewed and denied other than noted above. Sleep Information Total Hours of Sleep: 7.00 Meal Information Percent of Breakfast Consumed: 100 Percent of Lunch Consumed: 75 Percent of Dinner Consumed: 100 Mental Status Exam During interview pt is: alert and oriented, cooperative Appearance: appropriately dressed, appropriately groomed, appeared stated age Eye contact is: good Motor behavior is: steady gait & station, no abnormal motor movements Speech: normal in rate, rhythm & volume Affect: blunted Mood is: anxious Thought process: clear, coherent Thought content: reality based without delusions Suicidal thought are: denied Homicidal thoughts are: denied Hallucinations: denies auditory, denies visual Cognition: language grossly intact Intelligence estimated to be: consistent with level of education Insight: fair Judgement: poor Medication Trials Abilify, Luvox, Prozac, Risperdal, and Seroquel Impression Continuing to improve in regard to intrusive thoughts and anxiety. Affect remains blunted in comparison to previous admission, staff reporting difficulty with processing during groups. He has yet to interact with his brother and requires prompting by staff for simple tasks ie not yet baseline. Mother expressed concerns about not being ready for discharge given readmit within 30 days. He continues to meet inpatient criteria for stabilization and monitoring. Plan (1) Psychotic disorder lithium increased on admit as level 0.7 not true trough and active symptoms. consider lamictal as ongoing lability repeat lithium level on 10/14 10/12 - Continue haldol and encourage use of prn's when needed - Consider switch to Invega and Sustenna since Maintena does not appear to be effective (3 hospitalizations in short order). - Reality orientation 10/13 - Confirmed last dose of Abilify Maintena 400 mg IM was given on 10/05/2017. - Nunn increased from 300 mg every morning and 600 mg daily at bedtime to 600 mg twice a day on admission; repeat trough level tomorrow. Should consolidate bedtime prior to discharge for improved outpatient compliance and decreased risk of kidney damage. - Continue haloperidol 5 mg twice a day and buspirone 5 mg 3 times a day. - Continue when necessary Haldol, has not required a dose since 10/10/2017. - Coordinate care with outpatient providers, including therapist Barry Uribe and psychiatrist Dr. Lovett at [facility]. - Would recommend a more structured outpatient care, such as psych rehabilitation, PHP, or IOP, given 3 [id number] inpatient hospitalizations with rapid decompensation after discharge. 10/14 -Nunn level 1.0. Continue current meds and will consolidate to q HS 10/15 - To receive HS dosing of Nunn 1200mg consolidated dose this evening. - Continue other medications as above. - Continue to monitor anxiety and medication response over next few days as minor adjustments have been made. - Continue to encourage participation in groups as patient seems to be gaining insight through the structure and opportunity to engage with peers. 10/16 --Dr. Cochran directed shift of lithium to hs, consider shifting more of Haldol toward hs but for today will increase Buspar for residual anxiety as no evidence of activation. Staff will encourage a supervised interaction with brother if possible prior to discharge. (2) OCD (obsessive compulsive disorder) appears to be part of his psychotic process, hx of worsening on SSRIs, patient is requesting medication for anxiety--will do trial doses of Buspar 5 mg TID and monitor for activation hasn't tried SNRI but still would risk cycling 10/14 - Denies obsessions or compulsions today Discharge / Aftercare Planning Primary Care Physician: Name: Dr. Torres Date of Appointment: Dec 28, 2017 Time of Appointment: 7:55 AM Appointment Notes: [address] [facility] [address] Psychiatrist: Name: [facility] - Dr. Ortez Date of Appointment: Nov 02, 2017 Time of Appointment: 10:45 AM Appointment Notes: [address] [address] Therapist: Name: Dr. Abel Uribe Date of Appointment: Oct 23, 2017 Time of Appointment: 9:00 a.m. Appointment Notes: [address] [facility] [address] Partial or Psych Rehab: Name: [facility] Date of Appointment: Oct 21, 2017 Time of Appointment: 1:00 pm Appointment Notes: [address] [facility] [address] Other: Name of Appointment #1: Sarah - Mold Carpenter through [employer] Phone Number: Appointment #1 Notes: As needed, determined by pt Antipsychotic Medications patient prescribed Haldol and Abilify. The patient is continuing 2 antipsychotics due to: a history of a minimum of 3 failed trials of monotherapy (LIST): Risperdal, Seroquel, Abilify Visit Code E&M Code: 73485 Inventory Assets Strengths: supportive family, established outpatient providers, intelligent Needs: control of anxiety, stability of symptoms with proper medication regimen. Risk Factors Assessment Male: Yes : Yes /single/: Yes Higher / Fall in social status: No Health problems: No Mental Health Diagnoses: Yes Substance use disorders: No Previous psychiatric stay: Yes Hopelessness: No Smoker: No Protective Factors Assessment Uatsdin beliefs: Yes : No Responsible for young children: No Employed: No Stable relationships: Yes Supportive family: Yes Good rapport with provider: Yes Data Vital Signs Last 24 Hrs: Date Time Temp Pulse Resp B/P (MAP) Pulse Ox O2 Delivery O2 Flow Rate FiO2 10/16/17 06:40 36.8 46 14 105/59 71 109/66 Meds Administered Last 24 Hrs: Meds Administered (Past 24Hrs) Medications (Trade) Dose Ordered Sig/Alan Route Start Time Stop Time Status Last Admin Dose Admin Nunn Carbonate (Lithobid Tab) 1,200 mg HS PO 10/15/17 22:00 11/14/17 21:59 10/15/17 21:12 1,200 MG Nunn Carbonate (Lithobid Tab) 600 mg 2100 ONCE PO 10/14/17 21:00 10/14/17 21:01 DC 10/14/17 21:06 600 MG
[2017-10-16] MEDS: LITHIUM CARBONATE SR 300 MG TAB (LITHOBID) PO SCH (21:10)
[2017-10-17 06:48] VITALS: BP_SYST 118; BP_SYST 134; BP_DIAS 64; BP_DIAS 69; PULSE 48; PULSE 76; TEMP 36.6
--- NOTE | 2017-10-17 10:03 | Psychiatric Progress Notes ---
Progress Note Date of Service Oct 17, 2017. Interval History Dustin Starks is a now 22-year-old male previously admitted on Sep 11-Sep 17, 2017 who continues to live in [place] with his parents. Dustin Starks was readmitted on a 201 voluntary commitment with intrussive thoughts/SI. [place] was increased on admission. Chief Complaint "I'm good this morning". Subjective Patient was seen & assessed interval progress reviewed with Nursing. Staff reports pt had visit last evening with parents and younger brother. The visit seemed to go well, but pt later shared with staff that he did have worries at the start of the visit that he might harm his brother. He states has he got more comfortable the began to go away. Pt was seen today along with weekend covering psychiatrist, Dr. Castillo. Pt states he feels he is doing well this morning. He reports the visit with his family was "really nice". Upon further questioning he does confirm that he had worries initially that he might harm is brother, but states they did resolve. Time was spent with the patient to discuss safety planning in preparation for discharge. Pt identified several red flags that would indicate anxiety and could potentiate worries of harm to his brother. Pt was able to recognize that most of his anxiety is caused when his brother has a "fit". He was able to discuss red flags and plans to practice mindfulness or leave the room if he becomes overwhelmed. He also states his grandparents have offered for him to spend the night if he feels he needs to separate himself from situations for a while. Pt is planning to have another visit with his parents and brother if they are available this evening. This will allow him to practice these techniques and prepare himself for handling the stress on an outpatient basis. Pt dose state he feels the morning dose of Haldol may be making him tired and would be willing to have the doses consolidated to bedtime. He states sleep and appetite have been good. Pt denies SI/HI, A/V hallucinations and other psychosis today. Review of Systems Psych: denies symptoms other than stated above Constitutional: denied Cardiovascular: denied GI: denied Neurologic: denied Remainder of 10 body systems also reviewed and denied other than noted above. Sleep Information Total Hours of Sleep: 8.50 Meal Information Percent of Breakfast Consumed: 90 Percent of Lunch Consumed: 80 Percent of Dinner Consumed: 90 Mental Status Exam During interview pt is: alert and oriented, cooperative Appearance: appropriately dressed (in sweatpants and t-shirt), appropriately groomed Eye contact is: good Motor behavior is: steady gait & station, no abnormal motor movements Speech: normal in rate, rhythm & volume Affect: blunted Mood is: other ("good") Thought process: goal directed, clear, coherent Thought content: reality based without delusions Suicidal thought are: denied Homicidal thoughts are: denied Hallucinations: denies auditory, denies visual Cognition: memory grossly intact, attention grossly intact, language grossly intact Intelligence estimated to be: consistent with level of education Insight: fair Judgement: fair Medication Trials Abilify, Luvox, Prozac, Risperdal, and Seroquel Impression After visit with brother last evening, it would be beneficial to have another visit to allow the patient to work on how he might handle anxiety and worry about his brother and potentially harming him. Discharge planning depends greatly on his ability to feels comfortable with his plans to handle this stress and having the ability to practice this in real time. Due to reports of worrying about harm to brother initially, it would be helpful for the patient to be given another opportunity to visit while on the unit. He continues to meet inpatient criteria for stabilization and monitoring, as well as need to mitigate risk factors and practice safety planning prior to returning to the environment which precipitated his admission. Plan (1) Psychotic disorder lithium increased on admit as level 0.7 not true trough and active symptoms. consider lamictal as ongoing lability repeat lithium level on 10/14 10/12 - Continue haldol and encourage use of prn's when needed - Consider switch to Invega and Sustenna since Maintena does not appear to be effective (3 hospitalizations in short order). - Reality orientation 10/13 - Confirmed last dose of Abilify Maintena 400 mg IM was given on 10/05/2017. - [place] increased from 300 mg every morning and 600 mg daily at bedtime to 600 mg twice a day on admission; repeat trough level tomorrow. Should consolidate bedtime prior to discharge for improved outpatient compliance and decreased risk of kidney damage. - Continue haloperidol 5 mg twice a day and buspirone 5 mg 3 times a day. - Continue when necessary Haldol, has not required a dose since 10/10/2017. - Coordinate care with outpatient providers, including therapist Barry Uribe and psychiatrist Dr. Lovett at [facility]. - Would recommend a more structured outpatient care, such as psych rehabilitation, PHP, or IOP, given 3 [id number] inpatient hospitalizations with rapid decompensation after discharge. 10/14 -[place] level 1.0. Continue current meds and will consolidate to q HS 10/15 - To receive HS dosing of [place] 1200mg consolidated dose this evening. - Continue other medications as above. - Continue to monitor anxiety and medication response over next few days as minor adjustments have been made. - Continue to encourage participation in groups as patient seems to be gaining insight through the structure and opportunity to engage with peers. 10/16 --Dr. Cochran directed shift of lithium to hs, consider shifting more of Haldol toward hs but for today will increase Buspar for residual anxiety as no evidence of activation. Staff will encourage a supervised interaction with brother if possible prior to discharge. 10/17 - Consolidate Haldol dosing to hs. Pt agreeable. Tolerating increase of BuSpar and shift to lithium dosing. - Plan for another visit from parents and brother if available this evening as would help determine readiness for discharge. (2) OCD (obsessive compulsive disorder) appears to be part of his psychotic process, hx of worsening on SSRIs, patient is requesting medication for anxiety--will do trial doses of Buspar 5 mg TID and monitor for activation hasn't tried SNRI but still would risk cycling 10/14 - Denies obsessions or compulsions today 10/17 - Reports worries about harming brother last evening, but states they resolved during the visit with his family. He was able to express his concerns with staff after the visit. Will attempt another visit this evening if family is available. Discharge / Aftercare Planning Primary Care Physician: Name: Dr. Torres Date of Appointment: Dec 28, 2017 Time of Appointment: 7:55 AM Appointment Notes: [address] [facility] [address] Psychiatrist: Name: [facility] - Dr. Ortez Date of Appointment: Nov 02, 2017 Time of Appointment: 10:45 AM Appointment Notes: [address] [facility] [address] Therapist: Name: Dr. Abel Uribe Date of Appointment: Oct 23, 2017 Time of Appointment: 9:00 a.m. Appointment Notes: [address] [facility] [address] [facility] [address] Partial or Psych Rehab: Name: [facility] Date of Appointment: Oct 21, 2017 Time of Appointment: 1:00 pm Appointment Notes: [address] [facility] [address] Other: Name of Appointment #1: Sarah - Lacrosse Coach through [employer] Phone Number: Appointment #1 Notes: As needed, determined by pt Antipsychotic Medications patient prescribed Haldol and Abilify. The patient is continuing 2 antipsychotics due to: a history of a minimum of 3 failed trials of monotherapy (LIST): Risperdal, Seroquel, Abilify Visit Code E&M Code: 54882 Inventory Assets Strengths: supportive family, established outpatient providers, intelligent Needs: control of anxiety, stability of symptoms with proper medication regimen. Risk Factors Assessment Male: Yes : Yes /single/: Yes Higher / Fall in social status: No Health problems: No Mental Health Diagnoses: Yes Substance use disorders: No Previous psychiatric stay: Yes Hopelessness: No Smoker: No Protective Factors Assessment Latter Day beliefs: Yes : No Responsible for young children: No Employed: No Stable relationships: Yes Supportive family: Yes Good rapport with provider: Yes Data Vital Signs Last 24 Hrs: Date Time Temp Pulse Resp B/P (MAP) Pulse Ox O2 Delivery O2 Flow Rate FiO2 10/17/17 06:48 36.6 48 16 118/69 76 134/64 Meds Administered Last 24 Hrs: Meds Administered (Past 24Hrs) Medications (Trade) Dose Ordered Sig/Alan Route Start Time Stop Time Status Last Admin Dose Admin [place] Carbonate (Lithobid Tab) 1,200 mg HS PO 10/15/17 22:00 11/14/17 21:59 10/16/17 21:10 1,200 MG Buspirone HCl (Buspar Tab) 10 mg AC PO 10/16/17 17:15 11/10/17 12:14 10/17/17 09:23 10 MG
[2017-10-17] MEDS ORDERED: HALOPERIDOL 5 MG TAB PO SCH (22:00)
[2017-10-17] MEDS: LITHIUM CARBONATE SR 300 MG TAB (LITHOBID) PO SCH (22:26)
[2017-10-18 06:55] VITALS: BP_SYST 101; BP_SYST 115; BP_DIAS 56; BP_DIAS 62; PULSE 51; PULSE 78; TEMP 36.8
--- NOTE | 2017-10-18 07:58 | Psychiatric Progress Notes ---
Progress Note Date of Service Oct 18, 2017. Interval History Dustin Starks is a now 22-year-old male previously admitted on Sep 11-Sep 17, 2017 who continues to live in [place] with his parents. Dustin Starks was readmitted on a 201 voluntary commitment with intrussive thoughts/SI. [place] was increased on admission. Chief Complaint "[]". Subjective Patient was seen & assessed interval progress reviewed with Treatment Team. patient slept 6+hours last night His 5yo brother visit went well and he feels ready to go home rating his mood as 9.5, "eager" is how he described his mood. haldol at bedtime visit with brother Sleep Information Total Hours of Sleep: 6.00 Meal Information Percent of Breakfast Consumed: 90 Percent of Lunch Consumed: 75 Percent of Dinner Consumed: 100 Mental Status Exam During interview pt is: alert and oriented, cooperative Appearance: appropriately dressed (in sweatpants and t-shirt), appropriately groomed Eye contact is: good Motor behavior is: steady gait & station, no abnormal motor movements Speech: normal in rate, rhythm & volume Affect: blunted Mood is: other ("good") Thought process: goal directed, clear, coherent Thought content: reality based without delusions Suicidal thought are: denied Homicidal thoughts are: denied Hallucinations: denies auditory, denies visual Cognition: memory grossly intact, attention grossly intact, language grossly intact Intelligence estimated to be: consistent with level of education Insight: fair Judgement: fair Medication Trials Abilify, Luvox, Prozac, Risperdal, and Seroquel Impression After visit with brother last evening, it would be beneficial to have another visit to allow the patient to work on how he might handle anxiety and worry about his brother and potentially harming him. Discharge planning depends greatly on his ability to feels comfortable with his plans to handle this stress and having the ability to practice this in real time. Due to reports of worrying about harm to brother initially, it would be helpful for the patient to be given another opportunity to visit while on the unit. He continues to meet inpatient criteria for stabilization and monitoring, as well as need to mitigate risk factors and practice safety planning prior to returning to the environment which precipitated his admission. Plan (1) Psychotic disorder lithium increased on admit as level 0.7 not true trough and active symptoms. consider lamictal as ongoing lability repeat lithium level on 10/14 10/12 - Continue haldol and encourage use of prn's when needed - Consider switch to Invega and Sustenna since Maintena does not appear to be effective (3 hospitalizations in short order). - Reality orientation 10/13 - Confirmed last dose of Abilify Maintena 400 mg IM was given on 10/05/2017. - [place] increased from 300 mg every morning and 600 mg daily at bedtime to 600 mg twice a day on admission; repeat trough level tomorrow. Should consolidate bedtime prior to discharge for improved outpatient compliance and decreased risk of kidney damage. - Continue haloperidol 5 mg twice a day and buspirone 5 mg 3 times a day. - Continue when necessary Haldol, has not required a dose since 10/10/2017. - Coordinate care with outpatient providers, including therapist Barry Uribe and psychiatrist Dr. Lovett at [facility]. - Would recommend a more structured outpatient care, such as psych rehabilitation, PHP, or IOP, given 3 [id number] inpatient hospitalizations with rapid decompensation after discharge. 10/14 -[place] level 1.0. Continue current meds and will consolidate to q HS 10/15 - To receive HS dosing of [place] 1200mg consolidated dose this evening. - Continue other medications as above. - Continue to monitor anxiety and medication response over next few days as minor adjustments have been made. - Continue to encourage participation in groups as patient seems to be gaining insight through the structure and opportunity to engage with peers. 10/16 --Dr. Cochran directed shift of lithium to hs, consider shifting more of Haldol toward hs but for today will increase Buspar for residual anxiety as no evidence of activation. Staff will encourage a supervised interaction with brother if possible prior to discharge. 10/17 - Consolidate Haldol dosing to hs. Pt agreeable. Tolerating increase of BuSpar and shift to lithium dosing. - Plan for another visit from parents and brother if available this evening as would help determine readiness for discharge. (2) OCD (obsessive compulsive disorder) appears to be part of his psychotic process, hx of worsening on SSRIs, patient is requesting medication for anxiety--will do trial doses of Buspar 5 mg TID and monitor for activation hasn't tried SNRI but still would risk cycling 10/14 - Denies obsessions or compulsions today 10/17 - Reports worries about harming brother last evening, but states they resolved during the visit with his family. He was able to express his concerns with staff after the visit. Will attempt another visit this evening if family is available. Discharge / Aftercare Planning Primary Care Physician: Name: Dr. Torres Date of Appointment: Dec 28, 2017 Time of Appointment: 7:55 AM Appointment Notes: [address] [facility] [address] Psychiatrist: Name: [facility] Ani Ortez Date of Appointment: Nov 02, 2017 Time of Appointment: 10:45 AM Appointment Notes: [address] [facility] [address] Therapist: Name: Dr. Abel Uribe Date of Appointment: Oct 23, 2017 Time of Appointment: 9:00 a.m. Appointment Notes: [address] [facility] [address] [facility] [address] Partial or Psych Rehab: Name: [facility] Date of Appointment: Oct 21, 2017 Time of Appointment: 1:00 pm Appointment Notes: [address] [facility] [address] Other: Name of Appointment #1: Sarah - Foreign Language Instructor through [facility] Phone Number: Appointment #1 Notes: As needed, determined by pt Antipsychotic Medications patient prescribed Haldol and Abilify. The patient is continuing 2 antipsychotics due to: a history of a minimum of 3 failed trials of monotherapy (LIST): Risperdal, Seroquel, Abilify Inventory Assets Strengths: supportive family, established outpatient providers, intelligent Needs: control of anxiety, stability of symptoms with proper medication regimen. Risk Factors Assessment Male: Yes : Yes /single/: Yes Higher / Fall in social status: No Health problems: No Mental Health Diagnoses: Yes Substance use disorders: No Previous psychiatric stay: Yes Hopelessness: No Smoker: No Protective Factors Assessment Confucianist beliefs: Yes : No Responsible for young children: No Employed: No Stable relationships: Yes Supportive family: Yes Good rapport with provider: Yes Data Vital Signs Last 24 Hrs: Date Time Temp Pulse Resp B/P (MAP) Pulse Ox O2 Delivery O2 Flow Rate FiO2 10/18/17 06:55 36.8 51 16 115/56 78 101/62 Meds Administered Last 24 Hrs: Meds Administered (Past 24Hrs) Medications (Trade) Dose Ordered Sig/Alan Route Start Time Stop Time Status Last Admin Dose Admin Buspirone HCl (Buspar Tab) 10 mg AC PO 10/16/17 17:15 11/10/17 12:14 10/17/17 17:07 10 MG Haloperidol (Haldol Tab) 10 mg HS PO 10/17/17 22:00 11/08/17 21:59 10/17/17 22:26 10 MG Problem Qualifiers (1) Psychotic disorder: Psychosis type: schizoaffective disorder Schizoaffective disorder type: bipolar Qualified Codes: F25.0 - Schizoaffective disorder, bipolar type
[2017-10-18 08:49] VITALS: BP_SYST 137; BP_SYST 91; BP_DIAS 59; BP_DIAS 73; BP_DIAS 79; PULSE 67; PULSE 70; PULSE 94
[2017-10-18] MEDS ORDERED: BSP5 PO (13:35)
[2017-10-18] MEDS ORDERED: LTHCR300 PO (13:35)
[2017-10-18] MEDS ORDERED: HLD5 PO (13:35)
--- NOTE | 2017-10-18 13:57 | Discharge Instructions ---
Discharge Information Report Includes Report will include the: Discharge Instructions & Summary Admission Admission Date / Time: Oct 09, 2017 at 17:06 Reason for Admission: Psychosis Nos Discharge Discharge Diagnosis / Problem: Psychosis NOS Condition at Discharge: Good Discharge Goals Goal(s): Improve function, Improve disease control Activity Recommendations Activity Limitations: resume your previous activity . Instructions / Follow-Up Instructions / Follow-Up . SPECIAL CARE INSTRUCTIONS: 1. Follow through with your scheduled aftercare appointments. If unable to keep an appointment, please call to reschedule. 2. Take your medication only as prescribed. Medication should not be changed or stopped without the approval of your doctor. In the event of worsening symptoms or concerns about side effects, contact your doctor immediately. 3. Utilize new healthy coping skills, anger management skills, and stress management skills learned during your hospitalization. Journal feelings and process them with a support person. Identify stressors or situations that may result in relapse, deterioration or inappropriate behaviors and develop a plan to deal with those issues. 4. If your coping skills are ineffective and you are in crisis, contact your outpatient providers for direction. If unable to reach your providers, please call the CAN HELP LINE AT or go to the closest Emergency Room. 5. Avoid alcohol and un-prescribed drugs. 6. You have been provided with the Mental Health Advance Directives Pamphlet for your review. AFTERCARE APPOINTMENTS: * Please call your insurance company prior to your scheduled appointment to confirm your aftercare providers are covered. Take your insurance information to your appointments. . Discharge / Aftercare Planning Primary Care Physician: Name: Dr. Torres Date of Appointment: Dec 28, 2017 Time of Appointment: 7:55 AM Appointment Notes: [address] [facility] [address] Psychiatrist: Name: [facility] Ani Ortez Date of Appointment: Nov 02, 2017 Time of Appointment: 10:45 AM Appointment Notes: [address] [facility] [address] Therapist: Name Of Therapist: Dr. Abel Uribe Date of Appointment: Oct 23, 2017 Time of Appointment: 9:00 a.m. Appointment Comments: [address] [address] Partial or Psych Rehab: Name: [facility] Date Of Appointment: Oct 21, 2017 Time of Appointment: 1:00 pm Appointment Comments: [address] [facility] [place] [address] Other: Name of Appointment #1: [facility] [employer] through [facility] Phone Number: Appointment #1 Notes: As needed, determined by pt . Follow-Up Care Plan for Follow-Up Care: Dr Uribe for therapy Dr Lagos (appt arranged by parents) for psychiatry Pending referral to Psych Rehab See discharge instructions for dates, times and phone numbers. Current Hospital Diet Patient's current hospital diet: Regular Diet Discharge Diet Recommended Diet: Regular Diet Procedures Procedures Performed: No Pending Studies Pending Studies at Discharge: No Medical Emergencies . Who to Call and When: Medical Emergencies: For questions or emergencies related to your hospital stay, please contact the Inpatient Behavioral Health Unit at [phone]. A department clinician is on-call 20/04 for the Behavioral Health Unit for emergencies At any time you feel your situation is an emergency, you may also call 911 immediately. . Non-Emergent Contact Non-Emergency issues call your: Psychiatrist, Therapist Advance Directives Do You Have an Existing Mental: No Existing Living Will: No Existing Power of Inkjet Operator: No Advance Directives Info Given: To Pt/S.O. Advance Directives Reason: Declines as Mental Health Visit. Discharge Summary Admission HPI Per the Admitting provider: Introduction: Dustin Starks is a 21-year-old male previously admitted on Sep 11-Sep 17, 2017 who continues to live in [place] with his parents. Dustin Starks was readmitted on a 201 voluntary commitment. The patient was brought to the ED by his mother. Information provided by the patient is considered to be limited. Cheif Complaint: "I was having disturbing thoughts". History of Present Illness Dustin Starks is a 21-year-old male admitted last month after a brief hospitalization at [facility] in [place]. To summarize his stay , Luvox was held and Scotia initiated given his manic appearance with aud lopes of God's voice, grandiosity and hypersexuality. Notes from hospital note making female peers in the dorm feel uncomfortable with his language and belief that he was in a relationship with his RA which was confirmed to not be reality based. He describes spending $400-$900 he didn't have on jewelry (a single necklace) at one point and trying to resell it. He reported feeling hyper and that things aren't real at times like Jb in the movie Elf. His affect was quite labile. He complied with follow-up and received his Abilify injection on 10/05/16 per family. His mother reports he did well for a few days but has had gradual decline in sleep and increase in intrussive thoughts, restlessness and paranoia. He describes worry about hurting others, specifically due to thoughts /fears that he may slit his brother's throat or try to harm himself in some way (bang head on wall or try to poke his eye out). He feels sad and guilty about the thoughts. Per last stay--Pt was reportedly hospitalized for increased anxiety and mood instability. He reports poor compliance with psychiatric medications. Per mother's request, pt was taken from [facility] due to her feelings that care was inadequate. Due to ongoing anxiety and being unable to think clearly, pt was brought to the ED upon recommendation by Dr. Lovett. Pt was previously diagnosed with OCD, anxiety, and ADHD. Pt states the majority of his anxiety is from feeling a need to protect people. He feels as though "it is my job to save the world" and shared that last evening he came to the realization that " my job is to just focus on myself and school and wrestling". Pt states he cares deeply for his mother and "she tells me I'm special all the time and I want her to know how special she is". He becomes extremely tearful when expressing this. Pt is extreme labile and frequently alternates between energetic excitement and tears. Pt also reports his family has planned a trip to [place] over and he is worried that if he is not well, they will have to change their plans which makes him feel guilty. Pt seems to be preoccupied with the idea that he needs to protect people and that it is up to him to "save the world". He can quickly redirect himself and explains that he realizes it is not his job to do that. He states that he has been afraid to share certain thoughts and tells us that "one time I felt like I saved the world with Jeb Hairyer - in my mind". Due to tangential thought process we were unable to more deeply examine these thoughts. Pt seems to be more energetic and excited when talking about wrestling and seems very passionate about his teammates and the sport itself. He is interested in sharing stories and will frequently apologize if he feels like he has misspoken. Pt is currently on Abilify Maintena and has been on Luvox for several years. Although he has a diagnosis of ADHD, he has not taken medications in several years. Per nursing notes, he has tried Seroquel in the past which caused sedation. He had been involved with a partial program through [facility] for 3 months and they were noticing improvement, but the program lost funding. Pt was then attending [employer] in [place]. Per nursing notes, his mother has passed on that he has OCD and anxious traits that were a big concern in 11th grade as the patient was overly religiously obsessed. He had been taking things in the Bible literally which was affecting grades and behavior. Pt denies that this is a concern at this point in time, though collateral information suggests that he has been veering down this path again recently. INitial Impressions from Admitting Provider: 21 yo male with a history of ADHD and OCD symptoms that progressed to paranoia, grandiosity, delusions, hypersexuality on Luvox consistent with a mood driven psychosis. Responded to addition of lithium but now decompensating with more violent intrussive thoughts in the context of poor sleep. Diagnosis: Mood disorder wtih psychosis (bipolar I vs. Schizaffective disorder , as patient has prior dx of schizophrenia), and acute anxiety (h/o OCD and panic) Admission Exam Per the Admitting provider: Mental Examination During interview pt is: sedated but cooperative Appearance: disheveled Eye contact is: fair Motor behavior is: no abnormal motor movements, IE AIMS=0 Speech: non-spontaneous Affect: blunted Mood is: anxious Thought process: blocking Thought content: preoccupation Suicidal thought are: denied Homicidal thoughts are: denied Hallucinations: denies auditory, denies visual Cognition: limited attention Intelligence estimated to be: average Insight: impaired Judgement: impaired Consultations none Hospital Course (1) Psychotic disorder lithium increased on admit as level 0.7 not true trough and active symptoms. consider lamictal as ongoing lability repeat lithium level on 10/14 10/12 - Continue haldol and encourage use of prn's when needed - Consider switch to Invega and Sustenna since Maintena does not appear to be effective (3 hospitalizations in short order). - Reality orientation 10/13 - Confirmed last dose of Abilify Maintena 400 mg IM was given on 10/05/2017. - Scotia increased from 300 mg every morning and 600 mg daily at bedtime to 600 mg twice a day on admission; repeat trough level tomorrow. Should consolidate bedtime prior to discharge for improved outpatient compliance and decreased risk of kidney damage. - Continue haloperidol 5 mg twice a day and buspirone 5 mg 3 times a day. - Continue when necessary Haldol, has not required a dose since 10/10/2017. - Coordinate care with outpatient providers, including therapist Barry Uribe and psychiatrist Dr. Lovett at [facility]. - Would recommend a more structured outpatient care, such as psych rehabilitation, PHP, or IOP, given 3 [id number] inpatient hospitalizations with rapid decompensation after discharge. 10/14 -Scotia level 1.0. Continue current meds and will consolidate to q HS 10/15 - To receive HS dosing of Scotia 1200mg consolidated dose this evening. - Continue other medications as above. - Continue to monitor anxiety and medication response over next few days as minor adjustments have been made. - Continue to encourage participation in groups as patient seems to be gaining insight through the structure and opportunity to engage with peers. 10/16 --Dr. Cochran directed shift of lithium to hs, consider shifting more of Haldol toward hs but for today will increase Buspar for residual anxiety as no evidence of activation. Staff will encourage a supervised interaction with brother if possible prior to discharge. 10/17 - Consolidate Haldol dosing to hs. Pt agreeable. Tolerating increase of BuSpar and shift to lithium dosing. - Plan for another visit from parents and brother if available this evening as would help determine readiness for discharge. 10/18/16 See day of discharge assessment below (2) OCD (obsessive compulsive disorder) appears to be part of his psychotic process, hx of worsening on SSRIs, patient is requesting medication for anxiety--will do trial doses of Buspar 5 mg TID and monitor for activation hasn't tried SNRI but still would risk cycling 10/14 - Denies obsessions or compulsions today 10/17 - Reports worries about harming brother last evening, but states they resolved during the visit with his family. He was able to express his concerns with staff after the visit. Will attempt another visit this evening if family is available. 10/18 - one flash of a thought that was egodystonic about his brother during the visit last evening "that was so much less than what it was before." He felt able to handle it without becoming distressed. He further felt better able to handle general anxiety better since time of admission Risk Factors Assessment Male: Yes : Yes /single/: Yes Higher / Fall in social status: No Health problems: No Mental Health Diagnoses: Yes Substance use disorders: No Previous psychiatric stay: Yes Hopelessness: No Smoker: No Protective Factors Assessment Mormonism beliefs: Yes : No Responsible for young children: No Employed: No Stable relationships: Yes Supportive family: Yes Good rapport with provider: Yes Day of Discharge Assessment DAY OF DISCHARGE ASSESSMENT: patient notes he is "fine" he did have a fleeting thought about his brother when family visited last night "it was a flash for a second and then gone, and no other thoughts about him being harmed" he continues to deny that he has intention or planning to harm his brother, and it is more the fear he has when those thoughts happen. "I don't feel as anxious anymore and when it happens it is much more manageable" He denies AVH, IOR, paranoia or delusions. "I have harm type symptoms with my OCD and those are better since I've been here as well." MSE: Stable gait and station. patient appears mildly anxious at times taking breaths but states "I am a little anxious about going home" Mood is "good...a little anxious" and affect appears congruent with stated mood and is non-labile and appropriate social intensity. He denies feeling panicked and does not appear in distress. He states his thoughts are clear and minimal OCD intrusive thoughts and this time. He is focussed on his coping skills when he goes home and denies SI/HI, intention or plan and expresses how he can cope if his anxiety or intrusive thoughts return. He makes good EC and speech is r/r/v and even to at times mildly anxious tone. He is oriented with intact recall and average intelligence. He is groomed in sweat pants and sweat shirt appearing clean. HIs insight and judgement are intact. PLAN: patient continues to report improvement from time of admission, and per staff observation is stable. He is no longer grossly psychotic and mood is stable. He continues to at times have fleeting thoughts of others being harmed but denies intention or plan of harming and these thoughts are egodystonic for him He is agreeable to taking his medications and f/u care. He is not having SI, intention or plan either. IN discussion with staff he is ready for discharge albeit a little anxious "but I have a plan, and my mindfulness, and I can always go visit my grandparents if I need to" We have agreed that he has improved and is expressing safety and demonstrating that in his verbalization of skills and demonstrating employing them while inpatient to include on several visits with his 5yo brother. Parents are supportive and he has intact aftercare. He is not considered an imminent danger to self or others and outpatient care is least restrictive and most appropriate setting for care. He will be discharged today Laboratory Test 10/09/17 12:11 10/09/17 13:11 10/09/17 13:29 10/14/17 08:17 Urine Opiates Screen NEG Urine Methadone, Qualitative NEG Urine Barbiturates NEG Urine Phencyclidine (PCP) Level NEG Ur Amphetamine/Methamphetamine NEG MDMA (Ecstasy) Screen NEG Urine Benzodiazepines Screen NEG Urine Cocaine Metabolite NEG Urine Marijuana (THC) NEG Urine Color YELLOW Urine Appearance CLEAR Urine pH 7.5 Urine Specific [place] 1.014 Urine Protein NEG Urine Glucose (UA) NEG Urine Ketones NEG Urine Occult Blood NEG Urine Nitrite NEG Urine Bilirubin NEG Urine Urobilinogen NEG Urine Leukocyte Esterase NEG White Blood Count 8.13 Red Blood Count 4.86 Hemoglobin 15.6 Hematocrit 43.3 Mean Corpuscular Volume 89.1 Mean Corpuscular Hemoglobin 32.1 Mean Corpuscular Hemoglobin Concent 36.0 RDW Standard Deviation 39.6 RDW Coefficient of Variation 12.3 Platelet Count 237 Mean Platelet Volume 10.5 Sodium Level 138 Potassium Level 3.9 Chloride Level 106 Carbon Dioxide Level 26 Anion Gap 6.0 Blood Urea Nitrogen 11 Creatinine 0.95 Est Creatinine Clear Calc Drug Dose 133.5 Estimated GFR () 134.0 Estimated GFR (Non- 115.6 BUN/Creatinine Ratio 11.8 Random Glucose 100 Calcium Level 9.2 Total Bilirubin 0.8 Direct Bilirubin 0.2 Aspartate Amino Transferase (AST) 22 Alanine Aminotransferase (ALT) 42 Alkaline Phosphatase 29 Total Protein 7.1 Albumin 4.0 Thyroid Stimulating Hormone (TSH) 2.670 Salicylates Level < 1.7 Acetaminophen Level < 2 Scotia Level 0.7 1.0 Ethyl Alcohol mg/dL < 3.0 Test 10/14/17 12:11 POC Glucose 206 Total Time Total Time Spent (min): Greater than 30 minutes (10986) Total Time Included: examination of the patient, discharge planning, medication reconciliation Tobacco Cessation at Discharge Smoking Status: Former Smoker FDA approved Prescription: non-smoker Problem Qualifiers (1) Psychotic disorder: Psychosis type: schizoaffective disorder Schizoaffective disorder type: bipolar Qualified Codes: F25.0 - Schizoaffective disorder, bipolar type
== END 2017-10-18 15:20 | disposition home or self-care (01) | DRG 885 ==
LOC: C.EDB 12:43 → C.MHU 17:06
PROVIDERS: ADMIT Psychiatry & Neurology Child & Adolescent Psychiatry; ATTEND Psychiatry & Neurology Child & Adolescent Psychiatry
DX: F29 Unspecified psychosis not due to a substance or known physiological condition (principal); F42.9 Obsessive-compulsive disorder, unspecified; F41.9 Anxiety disorder, unspecified; Z79.899 Other long term (current) drug therapy; Z87.891 Personal history of nicotine dependence; Z81.8 Family history of other mental and behavioral disorders

== ENCOUNTER → 2017-11-30 | Outpatient (CLI) | payer OTHER ==
[~2017-11-30] MED LIST changes: +BSP5 PO; -CHOL1000 PO; -MISCCAP80 PO; -MULT-506 PO; -OMEG10007 PO
[2017-11-30 12:29] LABS: BLOOD UREA NITROGEN 14 mg/dl (7-18); CREATININE 1.13 mg/dl (0.60-1.40)
== END | disposition home or self-care (01) ==
LOC: C.LAB1850 09:54
PROVIDERS: ATTEND Psychiatry & Neurology Psychiatry
DX: F25.0 Schizoaffective disorder, bipolar type (principal); Z51.81 Encounter for therapeutic drug level monitoring; Z79.899 Other long term (current) drug therapy